=== PATIENT | female | born 1955 ===

== ENCOUNTER 2020-06-04 19:52 | Inpatient (IN) | payer MEDICARE ==
[2020-06-04 21:09] VITALS: BP 138/90
[2020-06-04] MEDS ORDERED: Magnesium Hydroxide (MOM) 30 mL UDC PO PRN (22:11)
--- NOTE | 2020-06-05 08:16 | Psychiatric Evaluation ---
DATE OF SERVICE: AGE: 64. SEX: Female. PHYSICIAN: Dr. Griffin. CHIEF COMPLAINT: "I'm a doctor." HISTORY OF PRESENT ILLNESS: The patient is a 64-year-old female who was admitted to the hospital on a 5150 hold for grave disability. The patient is highly disorganized and she is unable to coherently explain her history or story. Also, her behavior and speech are disorganized and unable to provide any safe plan for self-care. The patient also has been aggressive towards other members of the household including children. Chart reviewed and the patient interviewed and discussed the patient's condition with the staff and reviewed records and labs. The patient has grandiose delusions and seems to be confused. The patient started by telling me "I'm a doctor and I don't like to be told what to do." She also was easily irritable and agitated, and she was not able to answer my questions coherently. The patient also is restless and was getting irritable easily when I was asking her more questions. PAST PSYCHIATRIC HISTORY: The patient seems to have history of bipolar disorder versus schizoaffective disorder. PAST MEDICAL HISTORY: The patient is obese. She also has diabetes mellitus. The patient also has a history of congestive heart failure. SOCIAL HISTORY: It seemed that the patient lives with her family. No known alcohol or any street drug use. ALLERGIES: LIDOCAINE, BENZOCAINE, FLUOXETINE, AND NSAIDS. MENTAL STATUS EXAMINATION: The patient appears older than his stated age. Obese. Anxious. Flat affect. Irritable mood and easily agitated. Thought processes are disorganized with flight of ideas and unable to keep track on one topic. The patient denies any hallucinations or delusions, but actively responding to stimuli and actively hallucinating. The patient denies suicide or homicide ideations in spite of that the patient is aggressive and in irritable and angry mood. The patient is alert and oriented to the situation, but not to the place or person. Intact immediate memory and she remembered events happened prior to her admission. Intact recent memory and she remembered the events happened 2 weeks ago. Intact remote memory and she remembered her date. Poor insight and she does not know why she is in the hospital. Poor judgment and she was aggressive at home including children. Seems to be of average intelligence based on her verbal ability. ASSESSMENT: PRIMARY DIAGNOSIS: Bipolar disorder, manic episode, severe, with psychotic features. MEDICAL DIAGNOSES: 1. Obesity. 2. Congestive heart failure. 3. Hypertension. TREATMENT PLAN: We will continue monitoring her behavior and her condition closely. Also, we will start the patient on Seroquel, dose of 25 mg during the day and 200 mg at bedtime and we will adjust the dose. ESTIMATED LENGTH OF STAY: 5-7 days. PATIENT'S STRENGTHS AND WEAKNESSES: The patient's strength is not clear at this time except that she seemed that she has supportive family. Weaknesses are her poor judgment and her poor impulse control. AFTER DISCHARGE PLAN: Outpatient treatment and followup will continue as an outpatient. CRITERIA FOR DISCHARGE: The patient will not be psychotic or exhibiting manic behavior and will stabilize psychotropic medications and will establish outpatient treatment plans. JOB# [id number]
[2020-06-05] MEDS ORDERED: Nicotine 14 mg/24 hr Tdm TD ONE (08:40)
[2020-06-05] MEDS: Nicotine 14 mg/24 hr Tdm TD SCH (09:41)
[2020-06-05] MEDS: Atorvastatin Calcium 10 MG TAB PO SCH (20:58)
[2020-06-06] MEDS: Nicotine 14 mg/24 hr Tdm TD SCH (09:32)
--- NOTE | 2020-06-06 18:19 | Progress Notes ---
DATE: 06/06/2020 SUBJECTIVE: Chart reviewed and the patient interviewed. Also discussed the patient's condition with the staff and reviewed records and labs. The patient continued to be anxious and continued to be in irritable and angry mood. 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 She also still has severe mood swings. The patient also is restless and she is still easily agitated and easily irritable. Otherwise, the patient started on Seroquel new dose and she is taking Seroquel 25 mg twice a day and 200 mg at bedtime. ASSESSMENT: The patient is still psychotic and agitated. TREATMENT PLAN: Continue to monitor behavior and condition closely. Also, continue Seroquel same dose and work on her behavior and followup. JOB# [id number]
[2020-06-06] MEDS: Atorvastatin Calcium 10 MG TAB PO SCH (21:55)
[2020-06-07] MEDS: Nicotine 14 mg/24 hr Tdm TD SCH (08:38)
--- NOTE | 2020-06-07 13:49 | History and Physical ---
History of Present Illness - HPI Chief Complaint: Psychosis HPI: * Transferred from [facility] * Admitted for 5150hold due to manic episode Vital Signs: Last Vital Signs Temp 97.4 F 06/07/20 05:52 Pulse 81 06/07/20 05:52 Resp 20 06/07/20 05:52 BP 125/76 06/07/20 05:52 Pulse Ox 95 06/07/20 05:52 Past Medical History Cardiovascular: Report: Hyperlipidemia Pulmonary: Report: No Pertinent Hx WO[employer]WORKING [employer]ACH[employer]TER: Report: No Pertinent Hx GI: Report: No Pertinent Hx Psych: Report: Bipolar, Schizophrenia Musculoskeletal: Report: Osteoarthritis Rheumatologic: Report: No pertinent Hx Infectious Disease: Report: No Pertinent Hx Renal/: Report: No Pertinent Hx Endocrine: Report: Diabetes Dermatology: Report: No Pertinent Hx Family Medical History - Family Member Mother History Unknown: Yes Social History Smoke: Quit Alcohol: Other (Unknown) Drugs: Cocaine Lives: With Family, Homeless - Medications Home Medications: Home Medication Medication Instructions Recorded Type Atorvastatin Calcium [Lipitor] 40 mg PO HS 06/04/20 History Nicotine 14 mg/24 hr [Nicotine 14 mg TD DAILY 06/04/20 History Transdermal System] QUEtiapine Fumarate [SEROquel] 200 mg PO HS 06/04/20 History metFORMIN [Glucophage] 500 mg PO BID 06/04/20 History risperiDONE [Risperdal] 1 mg PO BID 06/04/20 History - Allergies Allergies/Adverse Reactions: Allergies Allergy/AdvReac Type Severity Reaction Status Date / Time Anesthetics - Amide Type Allergy Unknown Verified 06/04/20 22:02 benzocaine Allergy Verified 06/05/20 00:51 fluoxetine Allergy Verified 06/04/20 22:02 lidocaine Allergy Verified 06/04/20 22:02 NSAIDS (Non-Steroidal Allergy Verified 06/04/20 22:02 Anti-Inflamma Review of Systems - Review of Systems Constitutional: Report: No Significant Eyes: Report: No Significant ENT: Report: No Significant Respiratory: Report: No Significant Cardiovascular: Report: Edema Gastrointestinal: Report: No Significant Genitourinary: Report: Incontinence Musculoskeletal: Report: Leg Pain Skin: Report: No Significant Neurological: Report: No Significant Physical Exam - Physical Exam HEENT: Report: Ears Nose Throat within normal limits, Pharnyx within normal limits Neck: Report: Within normal limits Cardiovascular Systems: Report: Regular, Rate and Rhythm, no murmurs noted Respiratory: Report: Clear to Auscultation of lung charles, Breath Sounds are within normal limits Abdomen: Report: Non-tender to palpation, Bowel Sounds are within normal limits Back: Report: Inspection of back is within normal limits. Extremities: Report: Pedal edema was noted on inspection Skin: Report: Color of skin is within normal limits, Warm, Dry, No Rashes noted of the skin Neuro/Psych: Report: A+Ox3, CN II-XII intact, No motor deficit, No sensory deficit - Lab Results All Lab Results last 24 hours: Microbiology 06/04/20 22:19 - Final Nares NO MRSA ISOLATED - Assessment Assessment: * DM * Hyperlipidemia * BLE Edema * OA * Constipation * Pyschosis NOS * Cocaine use disorder * H/O Tobacco Abuse * Homeless * Obesity * Possible alcohol use disorder * Personality disorder - Plan Plan: * Admitted to Geropsych unit * Continue home meds * Psychiatry consult * Obtain labs on Tuesday * Start on diuretics for BLE Edema Cranial Nerve Assessment - CRANIAL NERVES alcohol swab:: Yes Distinguishes movements in peripheral field.:: Yes up, down, sideways:: Yes on forehead, cheeks and chin, chews symmetrically:: Yes FACIAL VII: upper: Frowns Symmetrically:: Yes FACIAL VII: Lower: Smiles Symmetrically:: Yes both ears:: Yes GLOSS-PHARYNGEAL IX: Has gag reflex:: Yes VAGUS X: Can make guttural sounds:: Yes ACCESSORY XI: Shrugs shoulders symmetrically:: Yes tremors or fasciculation's:: Yes - MOTOR spasticity, cogwheel, atrophy, tremor, asterixis, other: Yes - COORDINATION Finger to nose, heel to boss, VALE, gait, Romberg: Yes - SENSORY signs, Brudzinski, Kernig, neck rigidity:: Yes - REFLEXES Brachioradials Right:: Yes Brachioradials Left:: Yes Biceps Right:: Yes Biceps Left:: Yes Triceps Right:: Yes Triceps Left:: Yes Knee Right:: Yes Knee Left:: Yes Ankle Right:: Yes Ankle Left:: Yes Babinski Right:: No Babinski Left:: No
--- NOTE | 2020-06-07 17:59 | Progress Notes ---
DATE: 06/07/2020 Case was discussed with staff of the patient, reviewed records. Covering for Dr. Griffin. This is a 64-year-old female who was admitted on 06/04/2020. 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 The patient was on a hold, grave disability, was highly disorganized, unable to talk coherently to explain her story, very disorganized, unable to give much information. The patient was grandiose. She was confused. 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 Does not like to be told what to do, was very agitated, and irritable. The patient probably with a history of bipolar disorder. When I talked to her, she started to tell me about how important it is for her to be leaving before Tuesday, trying to give all excuses, continues to have poor insight, unpredictable, impulsive, unable to state a safe plan for her self-care or tell me why she was here. Has been on Seroquel 25 mg twice a day, 200 mg at bedtime. She is also diabetic. She also is on Risperdal 1 mg twice a day. No side effects with the medication, no sedation, no nausea, no extrapyramidal symptoms. She kept following me around the unit, trying to give me ice. She is still psychotic and delusional. We will continue outpatient group therapy, milieu therapy, and adjust medications as needed. JOB# [id number] MTDD
[2020-06-07] MEDS: Atorvastatin Calcium 10 MG TAB PO SCH (20:17)
[2020-06-07] MEDS: Acetaminophen 500 MG TAB PO PRN (20:36)
[2020-06-08] MEDS: Nicotine 14 mg/24 hr Tdm TD SCH (08:12)
[2020-06-08 10:50] LABS: % NEUTROPHILS 60.4 % (40-70); BASOPHILS % (AUTO) 1.1 % (0.0-2.0); EOSINOPHILS % (AUTO) 1.8 % (0-4); HEMATOCRIT 41.5 % (36-48); LYMPHOCYTES # (AUTO) 1.6 K/uL (1.0-5.5); MEAN CORPUSCULAR HEMOGLOBIN 25 pg (27-31); MEAN CORPUSCULAR HGB CONC 31 % (32-36); MEAN CORPUSCULAR VOLUME 81 fL (79.0-98.0); MONOCYTES % (AUTO) 6.7 % (1.7-9.3); NEUTROPHILS # (AUTO) 3.2 K/uL (1.8-7.7); PLATELET COUNT 277 K/uL (130-430); RED BLOOD COUNT 5.16 MIL/uL (4.2-6.2); WHITE BLOOD COUNT 5.3 K/uL (4.8-10.8)
[2020-06-08 10:51] LABS: BASOPHILS # (AUTO) 0.1 K/uL (0.0-0.2); EOSINOPHILS # (AUTO) 0.1 K/uL (0.0-0.4); MONOCYTES # (AUTO) 0.4 K/uL (0.0-1.0)
[2020-06-08 11:08] LABS: CHOLESTEROL 125 mg/dL (<200); LDL CHOLESTEROL 68 mg/dL (0-129); TRIGLYCERIDES 114 mg/dL (30-150)
[2020-06-08 11:10] LABS: BILIRUBIN,TOTAL 0.5 mg/dL (0.0-1.0); CALCIUM SERUM 9.6 mg/dL (8.4-10.2); CREATININE - SERUM 0.78 mg/dL (0.70-1.30); TOTAL PROTEIN,SERUM 8.1 g/dL (6.4-8.3)
[2020-06-08 11:11] LABS: POTASSIUM SERUM 4.1 mmol/L (3.5-5.1)
[2020-06-08] MEDS: Acetaminophen 500 MG TAB PO PRN (13:58)
--- NOTE | 2020-06-08 20:09 | Progress Notes ---
DATE: 06/08/2020 Case was discussed with staff of the patient, reviewed records. The patient continues to be grandiose, continues to be intrusive. I was talking to the patient, she came and asked me if I could take the patient back to her room and I discussed with her that she need to just mind her own business. She continues to be grandiose, delusional, unable to make safe plan for self-care. 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 No side effects with the medication, no sedation, no nausea, no extrapyramidal symptoms. I will be increasing her Seroquel dose during the day to 50 mg twice a day. We will continue outpatient group therapy, milieu therapy, adjust medication as needed. JOB# [id number]
[2020-06-08] MEDS: Atorvastatin Calcium 10 MG TAB PO SCH (20:56)
[2020-06-09] MEDS: Nicotine 14 mg/24 hr Tdm TD SCH (08:14)
--- NOTE | 2020-06-09 12:39 | Internal Medicine Prog Note ---
Internal Medicine Subjective - Subjective Service Date: 06/09/20 Patient seen and examined:: without staff Patient is:: awake Patient Complaints of:: congestion Per staff patient has:: no adverse event, no episodes of fall Internal Medicine Objective - Results Result Diagrams: 06/08/20 09:45 06/08/20 09:45 Recent Labs: Laboratory Last Values WBC 5.3 K/uL (4.8-10.8) 06/08/20 09:45 RBC 5.16 MIL/uL (4.2-6.2) 06/08/20 09:45 Hgb 13.0 g/dL (12.0-16.0) 06/08/20 09:45 Hct 41.5 % (36-48) 06/08/20 09:45 MCV 81 fL (79.0-98.0) 06/08/20 09:45 MCH 25 pg (27-31) L 06/08/20 09:45 MCHC 31 % (32-36) L 06/08/20 09:45 RDW 15.0 % (9.0-15.0) 06/08/20 09:45 Plt Count 277 K/uL (130-430) 06/08/20 09:45 MPV 8.6 fl (7.4-10.4) 06/08/20 09:45 Neut % (Auto) 60.4 % (40-70) 06/08/20 09:45 Lymph % (Auto) 30.0 % (20.5-51.5) 06/08/20 09:45 Howard % (Auto) 6.7 % (1.7-9.3) 06/08/20 09:45 Eos % (Auto) 1.8 % (0-4) 06/08/20 09:45 Baso % (Auto) 1.1 % (0.0-2.0) 06/08/20 09:45 Neut # (Auto) 3.2 K/uL (1.8-7.7) 06/08/20 09:45 Lymph # (Auto) 1.6 K/uL (1.0-5.5) 06/08/20 09:45 Howard # (Auto) 0.4 K/uL (0.0-1.0) 06/08/20 09:45 Eos # (Auto) 0.1 K/uL (0.0-0.4) 06/08/20 09:45 Baso # (Auto) 0.1 K/uL (0.0-0.2) 06/08/20 09:45 Sodium 137 mmol/L (136-145) 06/08/20 09:45 Potassium 4.1 mmol/L (3.5-5.1) 06/08/20 09:45 Chloride 105 mmol/L (98-107) 06/08/20 09:45 Carbon Dioxide 26 mmol/L (23-29) 06/08/20 09:45 Anion Gap 10 (5-15) 06/08/20 09:45 BUN 17 mg/dL (8-21) 06/08/20 09:45 Creatinine 0.78 mg/dL (0.70-1.30) 06/08/20 09:45 Glucose 100 mg/dL (70-99) H 06/08/20 09:45 POC Glucose 121 MG/DL (70 - 105) H 06/05/20 14:15 Calcium 9.6 mg/dL (8.4-10.2) 06/08/20 09:45 Total Bilirubin 0.5 mg/dL (0.0-1.0) 06/08/20 09:45 AST 59 U/L (10-37) H 06/08/20 09:45 ALT 47 U/L (12-78) 06/08/20 09:45 Alkaline Phosphatase 92 U/L (46-116) 06/08/20 09:45 Total Protein 8.1 g/dL (6.4-8.3) 06/08/20 09:45 Albumin 3.3 g/dL (3.4-5.0) L 06/08/20 09:45 Triglycerides 114 mg/dL (30-150) 06/08/20 09:45 Cholesterol 125 mg/dL (<200) 06/08/20 09:45 LDL Cholesterol 68 mg/dL (0-129) 06/08/20 09:45 HDL Cholesterol 45 mg/dL (>55) L 06/08/20 09:45 - Physical Exam Vitals and I&O: Vital Signs Temp 98.8 F 06/09/20 06:29 Pulse 75 06/09/20 06:29 Resp 20 06/09/20 06:29 BP 113/74 06/09/20 08:14 Pulse Ox 92 06/09/20 06:29 Intake & Output 06/08/20 06/09/20 06/09/20 18:59 06:59 18:59 Intake Total 240 Balance 240 Intake: Oral 240 Other: # Voids 3 # Bowel Movements 0 Active Medications: Current Medications Acetaminophen (Tylenol) 650 mg PO Q4H PRN PRN Reason: Pain (Mild 1-3) Stop: 08/03/20 22:10 Acetaminophen (Tylenol Extra Strength) 1,000 mg PO Q6H PRN PRN Reason: Pain (Moderate 4-6) Stop: 08/03/20 22:10 Last Admin: 06/08/20 13:58 Dose: 1,000 mg Al Hydrox/Mg Hydrox/Simethicone (Maalox) 30 ml PO Q4HR PRN PRN Reason: GI DISTRESS Stop: 08/03/20 22:10 Atorvastatin Calcium (Lipitor) 40 mg PO HS [facility] Stop: 08/04/20 20:59 Last Admin: 06/08/20 20:56 Dose: 40 mg Furosemide (Lasix) 20 mg PO DAILY [facility] Stop: 08/06/20 14:14 Last Admin: 06/09/20 08:14 Dose: 20 mg Lorazepam (Ativan) 1 mg PO Q4HR PRN; Protocol PRN Reason: Anxiety Stop: 08/04/20 07:20 Last Admin: 06/09/20 01:19 Dose: 1 mg Magnesium Hydroxide (Milk Of Magnesia) 30 ml PO HS PRN PRN Reason: Constipation Metformin HCl (Glucophage) 500 mg PO BIDWM ANNA Stop: 08/05/20 09:59 Last Admin: 06/09/20 08:13 Dose: 500 mg Nicotine (Nicotine Transdermal System) 14 mg TD DAILY ANNA Stop: 08/04/20 08:59 Last Admin: 06/09/20 08:14 Dose: 14 mg Quetiapine Fumarate (Seroquel) 200 mg PO HS ANNA; Protocol Stop: 08/04/20 20:59 Last Admin: 06/08/20 20:56 Dose: 200 mg Quetiapine Fumarate (Seroquel) 50 mg PO BID [facility]; Protocol Stop: 08/07/20 16:59 Last Admin: 06/09/20 08:14 Dose: 50 mg Risperidone (Risperdal) 1 mg PO BID [facility]; Protocol Stop: 08/05/20 08:59 Last Admin: 06/09/20 08:14 Dose: 1 mg Zolpidem Tartrate (Ambien) 5 mg PO HS PRN PRN Reason: Insomnia Stop: 08/03/20 22:10 Last Admin: 06/08/20 20:56 Dose: 5 mg General: weak HEENT: NC/AT, PERRLA Neck: Supple Lungs: CTAB Cardiovascular: RRR, Normal S1, Normal S2 Abdomen: soft Extremities: clear Internal Medicine Assmt/Plan - Assessment Assessment: 1. DM 2. HTN 3. Obesity - Plan Plan: continue glucophage continue htn meds d/w r.n. reviewed complete medical records Nutritional Asmnt/Malnutr-PDOC - Dietary Evaluation Malnutrition Findings (Please click <Entered> for more info): Nutritional Asmnt/Malnutrition Start: 06/08/20 11: 05 Text: Status: Complete Freq: Protocol: Document 06/08/20 11:05 EDWARD (Rec: 06/08/20 11:08 EDWARD [id number]) Nutritional Asmnt/Malnutrition Patient General Information Nutritional Screening Moderate Risk Diagnosis Grave Disability hold Pertinent Medical Hx/Surgical Hx Hyperlipidemia, Bipolar disorder, Schizophrenia, Osteoarthritis, DM, CHF Subjective Information Pt is a 64-year-old male admitted on 06/04 d/t hold for grave disability. Pt is eating an estimated 100% of meals since admit date (x3 days) Per Meal/Nutrition Activity Record. Dietary is currently providing an estimated 1700 kcals and 95 gm Pro to meet 100% kcal and 100+% Pro needs. Anthropometrics HT: 56 WT: 230 LB (104.55 kg) ABW: 155 LB (70.45 kg) BMI: 37.12 (Obese, class II) GI/ Skin Integrity GI: WNL, Soft, Large BM: 06/07 x1 I/O: 1440/Not Noted Skin: WNL, Intact, BLE Edema Patrick: 19 Diet Order: CCHO, CRYSTAL Estimated Energy Needs: (Obese , ABW) 0466-9993 kcals (20-25 kcals/ kg) 55-70g Pro (0.8-1.0 g/kg) 8783-0836 ml (20-25 ml/kg) Current Diet Order/ Nutrition Support CCHO, CRYSTAL Pertinent Medications Maalox (PRN), Lipitor, Lasix, MOM (PRN), Metformin Pertinent Labs POC Glucose (06/04-06/05): 128, 121 Nutritional Hx/Data Height 1.68 m Height (Calculated Centimeters) 167.6 Current Weight (lbs) 104.326 kg Weight (Calculated Kilograms) 104.3 Weight (Calculated Grams) 926486.2 [place] Body Weight 130 LB (59.09 kg) % [place] Body Weight 177 Body Mass Index (BMI) 37.1 Weight Status Obese GI Symptoms Last BM 06/07 x1 Skin Integrity/Comment: Skin: WNL, Intact, BLE Edema Patrick: 19 Lasix in medication regimen Current %PO Good (75-100%) Estimated Nutritional Goals BEE in Kcals: Adj wt of IBW Calories/Kcals/Kg 20-25 Kcals Calculated 5076-2203 Protein: Adj wt of IBW Protein g/k.8-1.0 Protein Calculated 55-70 Fluid: ml 1410-5590 ml (20-25 ml/kg) Nutritional Problem 2. Problem Problem Impaired nutrient utilization Etiology r/t endocrine dysfunction Signs/Symptoms: aeb Hx DM, POC Glucose (06/04-): 128, 121. 1. Problem Problem Obese Etiology r/t chronic energy overconsumption Signs/Symptoms: aeb BMI >30 (37.12, obese class II). Malnutrition Related to Morbid Obesity Malnutrition related to morbid obesity No Intervention/Recommendation Comments 1.Continue CCHO, CRYSTAL diet as tolerated. 2.Continue antihyperglycemic medication for glucose control per MD order. Expected Outcomes/Goals Expected Outcomes/Goals 1.PO intake to continue to meet >75% of estimated nutritional needs. 2.Monitor PO intake, wt, nutrition related labs, and skin integrity. 3.Gradual weight loss (0.5-1.0 ) LB/ week trending toward IBW preferred. 4.F/U as low risk in 7-10 days , 06/15-06/18.
[2020-06-09] MEDS: Acetaminophen 500 MG TAB PO PRN (16:41)
[2020-06-09] MEDS: Atorvastatin Calcium 10 MG TAB PO SCH (20:46)
--- NOTE | 2020-06-09 20:54 | Progress Notes ---
DATE: 06/09/2020 SUBJECTIVE: Chart was reviewed and the patient interviewed. Also discussed the patient's condition with the staff and reviewed records and labs. 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 The patient also is still unable to carry on any coherent conversation and "I'm here for hanging out." While my interview of the patient, the patient was singing loud and she is still exhibiting manic behavior and irritable mood and difficulty following directions and tried to calm her down, but the patient kept singing and kept rambling. MENTAL STATUS EXAMINATION: Disheveled. Irritable mood. Flat affect. Disorganized thoughts and manic behavior. ASSESSMENT: The patient is still manicky. TREATMENT PLAN: Continue monitoring behavior and condition closely. Also, continue working on her irritability and also working on her behavior. JOB# [id number]
[2020-06-10] MEDS: Nicotine 14 mg/24 hr Tdm TD SCH (08:49)
--- NOTE | 2020-06-10 14:09 | Internal Medicine Prog Note ---
Internal Medicine Subjective - Subjective Service Date: 06/10/20 Patient seen and examined:: without staff Patient is:: awake Patient Complaints of:: congestion Per staff patient has:: no adverse event, no episodes of fall Internal Medicine Objective - Results Result Diagrams: 06/08/20 09:45 06/08/20 09:45 Recent Labs: Laboratory Last Values WBC 5.3 K/uL (4.8-10.8) 06/08/20 09:45 RBC 5.16 MIL/uL (4.2-6.2) 06/08/20 09:45 Hgb 13.0 g/dL (12.0-16.0) 06/08/20 09:45 Hct 41.5 % (36-48) 06/08/20 09:45 MCV 81 fL (79.0-98.0) 06/08/20 09:45 MCH 25 pg (27-31) L 06/08/20 09:45 MCHC 31 % (32-36) L 06/08/20 09:45 RDW 15.0 % (9.0-15.0) 06/08/20 09:45 Plt Count 277 K/uL (130-430) 06/08/20 09:45 MPV 8.6 fl (7.4-10.4) 06/08/20 09:45 Neut % (Auto) 60.4 % (40-70) 06/08/20 09:45 Lymph % (Auto) 30.0 % (20.5-51.5) 06/08/20 09:45 [place] % (Auto) 6.7 % (1.7-9.3) 06/08/20 09:45 Eos % (Auto) 1.8 % (0-4) 06/08/20 09:45 Baso % (Auto) 1.1 % (0.0-2.0) 06/08/20 09:45 Neut # (Auto) 3.2 K/uL (1.8-7.7) 06/08/20 09:45 Lymph # (Auto) 1.6 K/uL (1.0-5.5) 06/08/20 09:45 [place] # (Auto) 0.4 K/uL (0.0-1.0) 06/08/20 09:45 Eos # (Auto) 0.1 K/uL (0.0-0.4) 06/08/20 09:45 Baso # (Auto) 0.1 K/uL (0.0-0.2) 06/08/20 09:45 Sodium 137 mmol/L (136-145) 06/08/20 09:45 Potassium 4.1 mmol/L (3.5-5.1) 06/08/20 09:45 Chloride 105 mmol/L (98-107) 06/08/20 09:45 Carbon Dioxide 26 mmol/L (23-29) 06/08/20 09:45 Anion Gap 10 (5-15) 06/08/20 09:45 BUN 17 mg/dL (8-21) 06/08/20 09:45 Creatinine 0.78 mg/dL (0.70-1.30) 06/08/20 09:45 Glucose 100 mg/dL (70-99) H 06/08/20 09:45 POC Glucose 121 MG/DL (70 - 105) H 06/05/20 14:15 Hemoglobin A1c 7.0 % (4.8-5.6) H 06/08/20 09:45 Calcium 9.6 mg/dL (8.4-10.2) 06/08/20 09:45 Total Bilirubin 0.5 mg/dL (0.0-1.0) 06/08/20 09:45 AST 59 U/L (10-37) H 06/08/20 09:45 ALT 47 U/L (12-78) 06/08/20 09:45 Alkaline Phosphatase 92 U/L (46-116) 06/08/20 09:45 Total Protein 8.1 g/dL (6.4-8.3) 06/08/20 09:45 Albumin 3.3 g/dL (3.4-5.0) L 06/08/20 09:45 Triglycerides 114 mg/dL (30-150) 06/08/20 09:45 Cholesterol 125 mg/dL (<200) 06/08/20 09:45 LDL Cholesterol 68 mg/dL (0-129) 06/08/20 09:45 HDL Cholesterol 45 mg/dL (>55) L 06/08/20 09:45 - Physical Exam Vitals and I&O: Vital Signs Temp 97.6 F 06/10/20 05:10 Pulse 70 06/10/20 05:10 Resp 16 06/10/20 08:00 BP 127/72 06/10/20 08:49 Pulse Ox 94 06/10/20 05:10 Intake & Output 06/09/20 06/10/20 06/10/20 18:59 06:59 18:59 Intake Total 900 480 Balance 900 480 Intake: Oral 900 480 Other: # Voids 3 1 # Bowel Movements 1 0 Active Medications: Current Medications Acetaminophen (Tylenol) 650 mg PO Q4H PRN PRN Reason: Pain (Mild 1-3) Stop: 08/03/20 22:10 Acetaminophen (Tylenol Extra Strength) 1,000 mg PO Q6H PRN PRN Reason: Pain (Moderate 4-6) Stop: 08/03/20 22:10 Last Admin: 06/09/20 16:41 Dose: 1,000 mg Al Hydrox/Mg Hydrox/Simethicone (Maalox) 30 ml PO Q4HR PRN PRN Reason: GI DISTRESS Stop: 08/03/20 22:10 Atorvastatin Calcium (Lipitor) 40 mg PO HS ANNA Stop: 08/04/20 20:59 Last Admin: 06/09/20 20:46 Dose: 40 mg Furosemide (Lasix) 20 mg PO DAILY ANNA Stop: 08/06/20 14:14 Last Admin: 06/10/20 08:49 Dose: 20 mg Lorazepam (Ativan) 1 mg PO Q4HR PRN; Protocol PRN Reason: Anxiety Stop: 08/04/20 07:20 Last Admin: 06/10/20 08:50 Dose: 1 mg Magnesium Hydroxide (Milk Of Magnesia) 30 ml PO HS PRN PRN Reason: Constipation Metformin HCl (Glucophage) 500 mg PO BIDWM ANNA Stop: 08/05/20 09:59 Last Admin: 06/10/20 08:49 Dose: 500 mg Nicotine (Nicotine Transdermal System) 14 mg TD DAILY ANNA Stop: 08/04/20 08:59 Last Admin: 06/10/20 08:49 Dose: 14 mg Quetiapine Fumarate (Seroquel) 200 mg PO HS ANNA; Protocol Stop: 08/04/20 20:59 Last Admin: 06/09/20 20:46 Dose: 200 mg Quetiapine Fumarate (Seroquel) 50 mg PO BID ANNA Stop: 08/08/20 16:59 Last Admin: 06/10/20 08:50 Dose: 50 mg Risperidone (Risperdal) 1 mg PO BID ANNA; Protocol Stop: 08/05/20 08:59 Last Admin: 06/10/20 08:49 Dose: 1 mg Zolpidem Tartrate (Ambien) 5 mg PO HS PRN PRN Reason: Insomnia Stop: 08/03/20 22:10 Last Admin: 06/09/20 20:46 Dose: 5 mg General: weak HEENT: NC/AT, PERRLA Neck: Supple Lungs: CTAB Cardiovascular: RRR, Normal S1, Normal S2 Abdomen: soft Extremities: clear Neurological: no change Internal Medicine Assmt/Plan - Assessment Assessment: 1. DM 2. HTN 3. Obesity - Plan Plan: continue glucophage continue htn meds d/w r.n. reviewed complete medical records Nutritional Asmnt/Malnutr-PDOC - Dietary Evaluation Malnutrition Findings (Please click <Entered> for more info): Nutritional Asmnt/Malnutrition Start: 06/08/20 11: 05 Text: Status: Complete Freq: Protocol: Document 06/08/20 11:05 EDWARD (Rec: 06/08/20 11:08 EDWARD [email or web address] [id number]) Nutritional Asmnt/Malnutrition Patient General Information Nutritional Screening Moderate Risk Diagnosis Grave Disability hold Pertinent Medical Hx/Surgical Hx Hyperlipidemia, Bipolar disorder, Schizophrenia, Osteoarthritis, DM, CHF Subjective Information Pt is a 64-year-old male admitted on 06/04 d/t hold for grave disability. Pt is eating an estimated 100% of meals since admit date (x3 days) Per Meal/Nutrition Activity Record. Dietary is currently providing an estimated 1700 kcals and 95 gm Pro to meet 100% kcal and 100+% Pro needs. Anthropometrics HT: 56 WT: 230 LB (104.55 kg) ABW: 155 LB (70.45 kg) BMI: 37.12 (Obese, class II) GI/ Skin Integrity GI: WNL, Soft, Large BM: 06/07 x1 I/O: 1440/Not Noted Skin: WNL, Intact, BLE Edema Patrick: 19 Diet Order: CCHO, CRYSTAL Estimated Energy Needs: (Obese , ABW) 0715-4954 kcals (20-25 kcals/ kg) 55-70g Pro (0.8-1.0 g/kg) 7475-5728 ml (20-25 ml/kg) Current Diet Order/ Nutrition Support CCHO, CRYSTAL Pertinent Medications Maalox (PRN), Lipitor, Lasix, MOM (PRN), Metformin Pertinent Labs POC Glucose (06/04-06/05): 128, 121 Nutritional Hx/Data Height 1.68 m Height (Calculated Centimeters) 167.6 Current Weight (lbs) 104.326 kg Weight (Calculated Kilograms) 104.3 Weight (Calculated Grams) 080956.2 [place] Body Weight 130 LB (59.09 kg) % [place] Body Weight 177 Body Mass Index (BMI) 37.1 Weight Status Obese GI Symptoms Last BM 06/07 x1 Skin Integrity/Comment: Skin: WNL, Intact, BLE Edema Patrikc: 19 Lasix in medication regimen Current %PO Good (75-100%) Estimated Nutritional Goals BEE in Kcals: Adj wt of IBW Calories/Kcals/Kg 20-25 Kcals Calculated 7368-8823 Protein: Adj wt of IBW Protein g/k.8-1.0 Protein Calculated 55-70 Fluid: ml 0801-8442 ml (20-25 ml/kg) Nutritional Problem 2. Problem Problem Impaired nutrient utilization Etiology r/t endocrine dysfunction Signs/Symptoms: aeb Hx DM, POC Glucose (06/04-): 128, 121. 1. Problem Problem Obese Etiology r/t chronic energy overconsumption Signs/Symptoms: aeb BMI >30 (37.12, obese class II). Malnutrition Related to Morbid Obesity Malnutrition related to morbid obesity No Intervention/Recommendation Comments [facility] diet as tolerated. 2.Continue antihyperglycemic medication for glucose control per MD order. Expected Outcomes/Goals Expected Outcomes/Goals 1.PO intake to continue to meet >75% of estimated nutritional needs. 2.Monitor PO intake, wt, nutrition related labs, and skin integrity. 3.Gradual weight loss (0.5-1.0 ) LB/ week trending toward IBW preferred. 4.F/U as low risk in 7-10 days , 06/15-06/18.
--- NOTE | 2020-06-10 19:19 | Progress Notes ---
DATE: PSYCHIATRIC PROGRESS NOTE SUBJECTIVE: Chart reviewed and the patient interviewed. Also discussed the patient's condition with the staff and reviewed records and labs. "I am a retired [employer] of [employer]." "I wanted to be a lifetime colonel." The patient continued to have grandiose delusion and she is still having severe mood swings. The patient also is easily irritable and easily agitated. The patient also is demanding and she is pacing up and down the unit. The patient also is restless and she still needs redirections and close monitoring for her behavior. ASSESSMENT: The patient still has grandiose delusions and she is still in irritable mood. TREATMENT PLAN: Continue to work on behavioral modification and on her irritability. Also, continue adjusting psychotropic medications and work on behavioral modification. JOB# [id number]
[2020-06-10] MEDS: Atorvastatin Calcium 10 MG TAB PO SCH (20:56)
[2020-06-11] MEDS: Nicotine 14 mg/24 hr Tdm TD SCH (08:03)
[2020-06-11] MEDS ORDERED: Nicotine 14 mg/24 hr Tdm TD ONE (12:25)
--- NOTE | 2020-06-11 13:40 | Progress Notes ---
DATE: 06/11/2020 Case was discussed with staff of the patient, reviewed records. This is a well-known case to me. I have seen her before Covering for Dr. Griffin. reviewed lab work. The patient continues to be grandiose, delusional. She believes she need to be a lifetime colonel. She asked me today if she could get her import export manager to come in and get her out, so he can get her out of the unit. Continues to be easily irritable, agitated, very intrusive, demanding. Continues to come to the nurses' station. No side effects with the medication, no sedation, no nausea, no extrapyramidal symptoms. Very poor insight, unable to make safe plan for her self-care. I will be increasing her Seroquel during the day to 75 mg twice a day to help improve her intrusive, grandiose, delusional behavior and we will continue outpatient group therapy, milieu therapy, adjust medication as needed. JOB# [id number] MARLENE
--- NOTE | 2020-06-11 13:46 | Internal Medicine Prog Note ---
Internal Medicine Subjective - Subjective Service Date: 06/11/20 Patient seen and examined:: without staff Patient is:: awake Patient Complaints of:: congestion Per staff patient has:: no adverse event, no episodes of fall Internal Medicine Objective - Results Result Diagrams: 06/08/20 09:45 06/08/20 09:45 Recent Labs: Laboratory Last Values WBC 5.3 K/uL (4.8-10.8) 06/08/20 09:45 RBC 5.16 MIL/uL (4.2-6.2) 06/08/20 09:45 Hgb 13.0 g/dL (12.0-16.0) 06/08/20 09:45 Hct 41.5 % (36-48) 06/08/20 09:45 MCV 81 fL (79.0-98.0) 06/08/20 09:45 MCH 25 pg (27-31) L 06/08/20 09:45 MCHC 31 % (32-36) L 06/08/20 09:45 RDW 15.0 % (9.0-15.0) 06/08/20 09:45 Plt Count 277 K/uL (130-430) 06/08/20 09:45 MPV 8.6 fl (7.4-10.4) 06/08/20 09:45 Neut % (Auto) 60.4 % (40-70) 06/08/20 09:45 Lymph % (Auto) 30.0 % (20.5-51.5) 06/08/20 09:45 [place] % (Auto) 6.7 % (1.7-9.3) 06/08/20 09:45 Eos % (Auto) 1.8 % (0-4) 06/08/20 09:45 Baso % (Auto) 1.1 % (0.0-2.0) 06/08/20 09:45 Neut # (Auto) 3.2 K/uL (1.8-7.7) 06/08/20 09:45 Lymph # (Auto) 1.6 K/uL (1.0-5.5) 06/08/20 09:45 [place] # (Auto) 0.4 K/uL (0.0-1.0) 06/08/20 09:45 Eos # (Auto) 0.1 K/uL (0.0-0.4) 06/08/20 09:45 Baso # (Auto) 0.1 K/uL (0.0-0.2) 06/08/20 09:45 Sodium 137 mmol/L (136-145) 06/08/20 09:45 Potassium 4.1 mmol/L (3.5-5.1) 06/08/20 09:45 Chloride 105 mmol/L (98-107) 06/08/20 09:45 Carbon Dioxide 26 mmol/L (23-29) 06/08/20 09:45 Anion Gap 10 (5-15) 06/08/20 09:45 BUN 17 mg/dL (8-21) 06/08/20 09:45 Creatinine 0.78 mg/dL (0.70-1.30) 06/08/20 09:45 Glucose 100 mg/dL (70-99) H 06/08/20 09:45 POC Glucose 121 MG/DL (70 - 105) H 06/05/20 14:15 Hemoglobin A1c 7.0 % (4.8-5.6) H 06/08/20 09:45 Calcium 9.6 mg/dL (8.4-10.2) 06/08/20 09:45 Total Bilirubin 0.5 mg/dL (0.0-1.0) 06/08/20 09:45 AST 59 U/L (10-37) H 06/08/20 09:45 ALT 47 U/L (12-78) 06/08/20 09:45 Alkaline Phosphatase 92 U/L (46-116) 06/08/20 09:45 Total Protein 8.1 g/dL (6.4-8.3) 06/08/20 09:45 Albumin 3.3 g/dL (3.4-5.0) L 06/08/20 09:45 Triglycerides 114 mg/dL (30-150) 06/08/20 09:45 Cholesterol 125 mg/dL (<200) 06/08/20 09:45 LDL Cholesterol 68 mg/dL (0-129) 06/08/20 09:45 HDL Cholesterol 45 mg/dL (>55) L 06/08/20 09:45 - Physical Exam Vitals and I&O: Vital Signs Temp 98.8 F 06/11/20 05:31 Pulse 90 06/11/20 05:31 Resp 20 06/11/20 08:00 BP 110/57 06/11/20 08:04 Pulse Ox 93 06/11/20 05:31 Intake & Output 06/10/20 06/11/20 06/11/20 18:59 06:59 18:59 Intake Total 1500 120 Balance 1500 120 Intake: Oral 1500 120 Other: # Voids 4 2 # Bowel Movements 0 0 Active Medications: Current Medications Acetaminophen (Tylenol) 650 mg PO Q4H PRN PRN Reason: Pain (Mild 1-3) Stop: 08/03/20 22:10 Acetaminophen (Tylenol Extra Strength) 1,000 mg PO Q6H PRN PRN Reason: Pain (Moderate 4-6) Stop: 08/03/20 22:10 Last Admin: 06/09/20 16:41 Dose: 1,000 mg Al Hydrox/Mg Hydrox/Simethicone (Maalox) 30 ml PO Q4HR PRN PRN Reason: GI DISTRESS Stop: 08/03/20 22:10 Atorvastatin Calcium (Lipitor) 40 mg PO HS [facility] Stop: 08/04/20 20:59 Last Admin: 06/10/20 20:56 Dose: 40 mg Furosemide (Lasix) 20 mg PO DAILY [facility] Stop: 08/06/20 14:14 Last Admin: 06/11/20 08:04 Dose: 20 mg Lorazepam (Ativan) 1 mg PO Q4HR PRN; Protocol PRN Reason: Anxiety Stop: 08/04/20 07:20 Last Admin: 06/11/20 08:11 Dose: 1 mg Magnesium Hydroxide (Milk Of Magnesia) 30 ml PO HS PRN PRN Reason: Constipation Metformin HCl (Glucophage) 500 mg PO BIDWM ANNA Stop: 08/05/20 09:59 Last Admin: 06/11/20 08:05 Dose: 500 mg Nicotine (Nicotine Transdermal System) 14 mg TD DAILY [facility] Stop: 08/04/20 08:59 Last Admin: 06/11/20 08:03 Dose: 14 mg Quetiapine Fumarate (Seroquel) 200 mg PO HS [facility]; Protocol Stop: 08/04/20 20:59 Last Admin: 06/10/20 20:56 Dose: 200 mg Quetiapine Fumarate 50 mg/ (Quetiapine Fumarate 25 mg) 75 mg PO BID [facility] Stop: 08/10/20 16:59 Risperidone (Risperdal) 1 mg PO BID ANNA; Protocol Stop: 08/05/20 08:59 Last Admin: 06/11/20 08:04 Dose: 1 mg Zolpidem Tartrate (Ambien) 5 mg PO HS PRN PRN Reason: Insomnia Stop: 08/03/20 22:10 Last Admin: 06/10/20 21:16 Dose: 5 mg General: weak HEENT: NC/AT, PERRLA Neck: Supple Lungs: CTAB Cardiovascular: RRR, Normal S1, Normal S2 Abdomen: soft Extremities: clear Neurological: no change Internal Medicine Assmt/Plan - Assessment Assessment: 1. DM 2. HTN 3. Obesity - Plan Plan: continue glucophage continue htn meds d/w r.n. reviewed complete medical records Nutritional Asmnt/Malnutr-PDOC - Dietary Evaluation Malnutrition Findings (Please click <Entered> for more info): Nutritional Asmnt/Malnutrition Start: 06/08/20 11: 05 Text: Status: Complete Freq: Protocol: Document 06/08/20 11:05 EDWARD (Rec: 06/08/20 11:08 EDWARD MILY-CTXTS -[id number]) Nutritional Asmnt/Malnutrition Patient General Information Nutritional Screening Moderate Risk Diagnosis Grave Disability hold Pertinent Medical Hx/Surgical Hx Hyperlipidemia, Bipolar disorder, Schizophrenia, Osteoarthritis, DM, CHF Subjective Information Pt is a 64-year-old male admitted on 06/04 d/t hold for grave disability. Pt is eating an estimated 100% of meals since admit date (x3 days) Per Meal/Nutrition Activity Record. Dietary is currently providing an estimated 1700 kcals and 95 gm Pro to meet 100% kcal and 100+% Pro needs. Anthropometrics HT: 56 WT: 230 LB (104.55 kg) ABW: 155 LB (70.45 kg) BMI: 37.12 (Obese, class II) GI/ Skin Integrity GI: WNL, Soft, Large BM: 06/07 x1 I/O: 1440/Not Noted Skin: WNL, Intact, BLE Edema Patrick: 19 Diet Order: CCHO, CRYSTAL Estimated Energy Needs: (Obese , ABW) 6842-0853 kcals (20-25 kcals/ kg) 55-70g Pro (0.8-1.0 g/kg) 3544-2623 ml (20-25 ml/kg) Current Diet Order/ Nutrition Support CCHO, CRYSTAL Pertinent Medications Maalox (PRN), Lipitor, Lasix, MOM (PRN), Metformin Pertinent Labs POC Glucose (06/04-06/05): 128, 121 Nutritional Hx/Data Height 1.68 m Height (Calculated Centimeters) 167.6 Current Weight (lbs) 104.326 kg Weight (Calculated Kilograms) 104.3 Weight (Calculated Grams) 497471.2 [place] Body Weight 130 LB (59.09 kg) % [place] Body Weight 177 Body Mass Index (BMI) 37.1 Weight Status Obese GI Symptoms Last BM 06/07 x1 Skin Integrity/Comment: Skin: WNL, Intact, BLE Edema Patrick: 19 Lasix in medication regimen Current %PO Good (75-100%) Estimated Nutritional Goals BEE in Kcals: Adj wt of IBW Calories/Kcals/Kg 20-25 Kcals Calculated 2196-2572 Protein: Adj wt of IBW Protein g/k.8-1.0 Protein Calculated 55-70 Fluid: ml 5842-1642 ml (20-25 ml/kg) Nutritional Problem 2. Problem Problem Impaired nutrient utilization Etiology r/t endocrine dysfunction Signs/Symptoms: aeb Hx DM, POC Glucose (06/04-): 128, 121. 1. Problem Problem Obese Etiology r/t chronic energy overconsumption Signs/Symptoms: aeb BMI >30 (37.12, obese class II). Malnutrition Related to Morbid Obesity Malnutrition related to morbid obesity No Intervention/Recommendation Comments [facility] as tolerated. 2.Continue antihyperglycemic medication for glucose control per MD order. Expected Outcomes/Goals Expected Outcomes/Goals 1.PO intake to continue to meet >75% of estimated nutritional needs. 2.Monitor PO intake, wt, nutrition related labs, and skin integrity. 3.Gradual weight loss (0.5-1.0 ) LB/ week trending toward IBW preferred. 4.F/U as low risk in 7-10 days , 06/15-06/18.
[2020-06-11] MEDS: Acetaminophen 500 MG TAB PO PRN (14:58)
[2020-06-11] MEDS: Maalox 30 mL Cup PO PRN (20:25)
[2020-06-12] MEDS: Nicotine 14 mg/24 hr Tdm TD SCH (08:21)
[2020-06-12] MEDS: Maalox 30 mL Cup PO PRN (14:57)
--- NOTE | 2020-06-12 15:39 | Internal Medicine Prog Note ---
Internal Medicine Subjective - Subjective Service Date: 06/12/20 Patient seen and examined:: without staff Patient is:: awake Patient Complaints of:: congestion Per staff patient has:: no adverse event, no episodes of fall Internal Medicine Objective - Results Result Diagrams: 06/08/20 09:45 06/08/20 09:45 Recent Labs: Laboratory Last Values WBC 5.3 K/uL (4.8-10.8) 06/08/20 09:45 RBC 5.16 MIL/uL (4.2-6.2) 06/08/20 09:45 Hgb 13.0 g/dL (12.0-16.0) 06/08/20 09:45 Hct 41.5 % (36-48) 06/08/20 09:45 MCV 81 fL (79.0-98.0) 06/08/20 09:45 MCH 25 pg (27-31) L 06/08/20 09:45 MCHC 31 % (32-36) L 06/08/20 09:45 RDW 15.0 % (9.0-15.0) 06/08/20 09:45 Plt Count 277 K/uL (130-430) 06/08/20 09:45 MPV 8.6 fl (7.4-10.4) 06/08/20 09:45 Neut % (Auto) 60.4 % (40-70) 06/08/20 09:45 Lymph % (Auto) 30.0 % (20.5-51.5) 06/08/20 09:45 [place] % (Auto) 6.7 % (1.7-9.3) 06/08/20 09:45 Eos % (Auto) 1.8 % (0-4) 06/08/20 09:45 Baso % (Auto) 1.1 % (0.0-2.0) 06/08/20 09:45 Neut # (Auto) 3.2 K/uL (1.8-7.7) 06/08/20 09:45 Lymph # (Auto) 1.6 K/uL (1.0-5.5) 06/08/20 09:45 [place] # (Auto) 0.4 K/uL (0.0-1.0) 06/08/20 09:45 Eos # (Auto) 0.1 K/uL (0.0-0.4) 06/08/20 09:45 Baso # (Auto) 0.1 K/uL (0.0-0.2) 06/08/20 09:45 Sodium 137 mmol/L (136-145) 06/08/20 09:45 Potassium 4.1 mmol/L (3.5-5.1) 06/08/20 09:45 Chloride 105 mmol/L (98-107) 06/08/20 09:45 Carbon Dioxide 26 mmol/L (23-29) 06/08/20 09:45 Anion Gap 10 (5-15) 06/08/20 09:45 BUN 17 mg/dL (8-21) 06/08/20 09:45 Creatinine 0.78 mg/dL (0.70-1.30) 06/08/20 09:45 Glucose 100 mg/dL (70-99) H 06/08/20 09:45 POC Glucose 121 MG/DL (70 - 105) H 06/05/20 14:15 Hemoglobin A1c 7.0 % (4.8-5.6) H 06/08/20 09:45 Calcium 9.6 mg/dL (8.4-10.2) 06/08/20 09:45 Total Bilirubin 0.5 mg/dL (0.0-1.0) 06/08/20 09:45 AST 59 U/L (10-37) H 06/08/20 09:45 ALT 47 U/L (12-78) 06/08/20 09:45 Alkaline Phosphatase 92 U/L (46-116) 06/08/20 09:45 Total Protein 8.1 g/dL (6.4-8.3) 06/08/20 09:45 Albumin 3.3 g/dL (3.4-5.0) L 06/08/20 09:45 Triglycerides 114 mg/dL (30-150) 06/08/20 09:45 Cholesterol 125 mg/dL (<200) 06/08/20 09:45 LDL Cholesterol 68 mg/dL (0-129) 06/08/20 09:45 HDL Cholesterol 45 mg/dL (>55) L 06/08/20 09:45 Coronavirus (PCR) NOT DETECTED (NOT DETECTD) 06/11/20 10:16 - Physical Exam Vitals and I&O: Vital Signs Temp 97.5 F 06/12/20 14:00 Pulse 89 06/12/20 14:00 Resp 20 06/12/20 14:00 BP 117/81 06/12/20 14:00 Pulse Ox 95 06/12/20 14:00 Intake & Output 06/11/20 06/12/20 06/12/20 18:59 06:59 18:59 Intake Total 1300 120 Balance 1300 120 Intake: Oral 1300 120 Other: # Voids 3 Active Medications: Current Medications Acetaminophen (Tylenol) 650 mg PO Q4H PRN PRN Reason: Pain (Mild 1-3) Stop: 08/03/20 22:10 Acetaminophen (Tylenol Extra Strength) 1,000 mg PO Q6H PRN PRN Reason: Pain (Moderate 4-6) Stop: 08/03/20 22:10 Last Admin: 06/11/20 14:58 Dose: 1,000 mg Al Hydrox/Mg Hydrox/Simethicone (Maalox) 30 ml PO Q4HR PRN PRN Reason: GI DISTRESS Stop: 08/03/20 22:10 Last Admin: 06/12/20 14:57 Dose: 30 ml Atorvastatin Calcium (Lipitor) 40 mg PO HS ANNA Stop: 08/10/20 20:59 Last Admin: 06/11/20 20:25 Dose: 40 mg Furosemide (Lasix) 20 mg PO DAILY [facility] Stop: 08/06/20 14:14 Last Admin: 06/12/20 08:29 Dose: 20 mg Lorazepam (Ativan) 1 mg PO Q4HR PRN; Protocol PRN Reason: Anxiety Stop: 08/04/20 07:20 Last Admin: 06/12/20 13:16 Dose: 1 mg Magnesium Hydroxide (Milk Of Magnesia) 30 ml PO HS PRN PRN Reason: Constipation Metformin HCl (Glucophage) 500 mg PO BIDWM ANNA Stop: 08/05/20 09:59 Last Admin: 06/12/20 08:29 Dose: 500 mg Nicotine (Nicotine Transdermal System) 14 mg TD DAILY ANNA Stop: 08/04/20 08:59 Last Admin: 06/12/20 08:21 Dose: 14 mg Quetiapine Fumarate (Seroquel) 100 mg PO BID ANNA; Protocol Stop: 08/11/20 08:59 Quetiapine Fumarate 200 mg/ (Quetiapine Fumarate 50 mg) 250 mg PO HS ANNA Stop: 08/11/20 20:59 Trazodone HCl (Desyrel) 100 mg PO HS ANNA; Protocol Stop: 08/11/20 20:59 Zolpidem Tartrate (Ambien) 5 mg PO HS PRN PRN Reason: Insomnia Stop: 08/03/20 22:10 Last Admin: 06/11/20 21:23 Dose: 5 mg General: weak HEENT: NC/AT, PERRLA Neck: Supple Lungs: CTAB Cardiovascular: RRR, Normal S1, Normal S2 Abdomen: soft Extremities: clear Neurological: no change Internal Medicine Assmt/Plan - Assessment Assessment: 1. DM 2. HTN 3. Obesity - Plan Plan: reviewed blood sugar diaries continue glucophage continue htn meds d/w r.n. reviewed complete medical records Nutritional Asmnt/Malnutr-PDOC - Dietary Evaluation Malnutrition Findings (Please click <Entered> for more info): Nutritional Asmnt/Malnutrition Start: 06/08/20 11: 05 Text: Status: Complete Freq: Protocol: Document 06/08/20 11:05 EDWARD (Rec: 06/08/20 11:08 EDWARD MILY-CTXTS -01) Nutritional Asmnt/Malnutrition Patient General Information Nutritional Screening Moderate Risk Diagnosis Grave Disability hold Pertinent Medical Hx/Surgical Hx Hyperlipidemia, Bipolar disorder, Schizophrenia, Osteoarthritis, DM, CHF Subjective Information Pt is a 64-year-old male admitted on 06/04 d/t hold for grave disability. Pt is eating an estimated 100% of meals since admit date (x3 days) Per Meal/Nutrition Activity Record. Dietary is currently providing an estimated 1700 kcals and 95 gm Pro to meet 100% kcal and 100+% Pro needs. Anthropometrics HT: 56 WT: 230 LB (104.55 kg) ABW: 155 LB (70.45 kg) BMI: 37.12 (Obese, class II) GI/ Skin Integrity GI: WNL, Soft, Large BM: 06/07 x1 I/O: 1440/Not Noted Skin: WNL, Intact, BLE Edema Patrick: 19 Diet Order: CCHO, CRYSTAL Estimated Energy Needs: (Obese , ABW) 7660-1385 kcals (20-25 kcals/ kg) 55-70g Pro (0.8-1.0 g/kg) 9059-2698 ml (20-25 ml/kg) Current Diet Order/ Nutrition Support CCHO, CRYSTAL Pertinent Medications Maalox (PRN), Lipitor, Lasix, MOM (PRN), Metformin Pertinent Labs POC Glucose (06/04-06/05): 128, 121 Nutritional Hx/Data Height 1.68 m Height (Calculated Centimeters) 167.6 Current Weight (lbs) 104.326 kg Weight (Calculated Kilograms) 104.3 Weight (Calculated Grams) 140076.2 [place] Body Weight 130 LB (59.09 kg) % [place] Body Weight 177 Body Mass Index (BMI) 37.1 Weight Status Obese GI Symptoms Last BM 06/07 x1 Skin Integrity/Comment: Skin: WNL, Intact, BLE Edema Patrick: 19 Lasix in medication regimen Current %PO Good (75-100%) Estimated Nutritional Goals BEE in Kcals: Adj wt of IBW Calories/Kcals/Kg 20-25 Kcals Calculated 2365-5090 Protein: Adj wt of IBW Protein g/k.8-1.0 Protein Calculated 55-70 Fluid: ml 0556-1793 ml (20-25 ml/kg) Nutritional Problem 2. Problem Problem Impaired nutrient utilization Etiology r/t endocrine dysfunction Signs/Symptoms: aeb Hx DM, POC Glucose (06/04-): 128, 121. 1. Problem Problem Obese Etiology r/t chronic energy overconsumption Signs/Symptoms: aeb BMI >30 (37.12, obese class II). Malnutrition Related to Morbid Obesity Malnutrition related to morbid obesity No Intervention/Recommendation Comments 1.Continue [place], CRYSTAL diet as tolerated. 2.Continue antihyperglycemic medication for glucose control per MD order. Expected Outcomes/Goals Expected Outcomes/Goals 1.PO intake to continue to meet >75% of estimated nutritional needs. 2.Monitor PO intake, wt, nutrition related labs, and skin integrity. 3.Gradual weight loss (0.5-1.0 ) LB/ week trending toward IBW preferred. 4.F/U as low risk in 7-10 days , 06/15-06/18.
[2020-06-13] MEDS: Nicotine 14 mg/24 hr Tdm TD SCH (08:24)
--- NOTE | 2020-06-13 15:53 | Internal Medicine Prog Note ---
Internal Medicine Subjective - Subjective Service Date: 06/13/20 Patient seen and examined:: without staff Patient is:: awake Patient Complaints of:: congestion Per staff patient has:: no adverse event, no episodes of fall Internal Medicine Objective - Results Result Diagrams: 06/08/20 09:45 06/08/20 09:45 Recent Labs: Laboratory Last Values WBC 5.3 K/uL (4.8-10.8) 06/08/20 09:45 RBC 5.16 MIL/uL (4.2-6.2) 06/08/20 09:45 Hgb 13.0 g/dL (12.0-16.0) 06/08/20 09:45 Hct 41.5 % (36-48) 06/08/20 09:45 MCV 81 fL (79.0-98.0) 06/08/20 09:45 MCH 25 pg (27-31) L 06/08/20 09:45 MCHC 31 % (32-36) L 06/08/20 09:45 RDW 15.0 % (9.0-15.0) 06/08/20 09:45 Plt Count 277 K/uL (130-430) 06/08/20 09:45 MPV 8.6 fl (7.4-10.4) 06/08/20 09:45 Neut % (Auto) 60.4 % (40-70) 06/08/20 09:45 Lymph % (Auto) 30.0 % (20.5-51.5) 06/08/20 09:45 [place] % (Auto) 6.7 % (1.7-9.3) 06/08/20 09:45 Eos % (Auto) 1.8 % (0-4) 06/08/20 09:45 Baso % (Auto) 1.1 % (0.0-2.0) 06/08/20 09:45 Neut # (Auto) 3.2 K/uL (1.8-7.7) 06/08/20 09:45 Lymph # (Auto) 1.6 K/uL (1.0-5.5) 06/08/20 09:45 [place] # (Auto) 0.4 K/uL (0.0-1.0) 06/08/20 09:45 Eos # (Auto) 0.1 K/uL (0.0-0.4) 06/08/20 09:45 Baso # (Auto) 0.1 K/uL (0.0-0.2) 06/08/20 09:45 Sodium 137 mmol/L (136-145) 06/08/20 09:45 Potassium 4.1 mmol/L (3.5-5.1) 06/08/20 09:45 Chloride 105 mmol/L (98-107) 06/08/20 09:45 Carbon Dioxide 26 mmol/L (23-29) 06/08/20 09:45 Anion Gap 10 (5-15) 06/08/20 09:45 BUN 17 mg/dL (8-21) 06/08/20 09:45 Creatinine 0.78 mg/dL (0.70-1.30) 06/08/20 09:45 Glucose 100 mg/dL (70-99) H 06/08/20 09:45 POC Glucose 121 MG/DL (70 - 105) H 06/05/20 14:15 Hemoglobin A1c 7.0 % (4.8-5.6) H 06/08/20 09:45 Calcium 9.6 mg/dL (8.4-10.2) 06/08/20 09:45 Total Bilirubin 0.5 mg/dL (0.0-1.0) 06/08/20 09:45 AST 59 U/L (10-37) H 06/08/20 09:45 ALT 47 U/L (12-78) 06/08/20 09:45 Alkaline Phosphatase 92 U/L (46-116) 06/08/20 09:45 Total Protein 8.1 g/dL (6.4-8.3) 06/08/20 09:45 Albumin 3.3 g/dL (3.4-5.0) L 06/08/20 09:45 Triglycerides 114 mg/dL (30-150) 06/08/20 09:45 Cholesterol 125 mg/dL (<200) 06/08/20 09:45 LDL Cholesterol 68 mg/dL (0-129) 06/08/20 09:45 HDL Cholesterol 45 mg/dL (>55) L 06/08/20 09:45 Coronavirus (PCR) NOT DETECTED (NOT DETECTD) 06/11/20 10:16 - Physical Exam Vitals and I&O: Vital Signs Temp 97.0 F 06/13/20 14:00 Pulse 98 06/13/20 14:00 Resp 20 06/13/20 14:00 BP 133/99 06/13/20 14:00 Pulse Ox 96 06/13/20 14:00 Intake & Output 06/12/20 06/13/20 06/13/20 18:59 06:59 18:59 Intake Total 1200 120 Balance 1200 120 Intake: Oral 1200 120 Other: # Voids 4 3 # Bowel Movements 1 Active Medications: Current Medications Acetaminophen (Tylenol) 650 mg PO Q4H PRN PRN Reason: Pain (Mild 1-3) Stop: 08/03/20 22:10 Last Admin: 06/13/20 15:51 Dose: 650 mg Acetaminophen (Tylenol Extra Strength) 1,000 mg PO Q6H PRN PRN Reason: Pain (Moderate 4-6) Stop: 08/03/20 22:10 Last Admin: 06/11/20 14:58 Dose: 1,000 mg Al Hydrox/Mg Hydrox/Simethicone (Maalox) 30 ml PO Q4HR PRN PRN Reason: GI DISTRESS Stop: 08/03/20 22:10 Last Admin: 06/12/20 14:57 Dose: 30 ml Atorvastatin Calcium (Lipitor) 40 mg PO HS ANNA Stop: 08/10/20 20:59 Last Admin: 06/12/20 21:55 Dose: 40 mg Furosemide (Lasix) 20 mg PO DAILY [facility] Stop: 08/06/20 14:14 Last Admin: 06/13/20 08:24 Dose: 20 mg Lorazepam (Ativan) 1 mg PO Q4HR PRN; Protocol PRN Reason: Anxiety Stop: 08/04/20 07:20 Last Admin: 06/13/20 15:51 Dose: 1 mg Magnesium Hydroxide (Milk Of Magnesia) 30 ml PO HS PRN PRN Reason: Constipation Metformin HCl (Glucophage) 500 mg PO BIDWM [facility] Stop: 08/05/20 09:59 Last Admin: 06/13/20 08:24 Dose: 500 mg Nicotine (Nicotine Transdermal System) 14 mg TD DAILY [facility] Stop: 08/04/20 08:59 Last Admin: 06/13/20 08:24 Dose: 14 mg Quetiapine Fumarate (Seroquel) 100 mg PO BID ANNA; Protocol Stop: 08/11/20 08:59 Last Admin: 06/13/20 08:25 Dose: 100 mg Quetiapine Fumarate (Seroquel) 300 mg PO HS ANNA Stop: 08/12/20 20:59 Trazodone HCl (Desyrel) 100 mg PO HS ANNA; Protocol Stop: 08/11/20 20:59 Last Admin: 06/12/20 21:56 Dose: 100 mg Zolpidem Tartrate (Ambien) 5 mg PO HS PRN PRN Reason: Insomnia Stop: 08/03/20 22:10 Last Admin: 06/12/20 22:20 Dose: 5 mg General: weak HEENT: NC/AT, PERRLA Neck: Supple Lungs: CTAB Cardiovascular: RRR, Normal S1, Normal S2 Abdomen: soft Extremities: clear Neurological: no change Internal Medicine Assmt/Plan - Assessment Assessment: 1. DM 2. HTN 3. Obesity - Plan Plan: reviewed blood sugar diaries continue glucophage continue htn meds d/w r.n. reviewed complete medical records Nutritional Asmnt/Malnutr-PDOC - Dietary Evaluation Malnutrition Findings (Please click <Entered> for more info): Nutritional Asmnt/Malnutrition Start: 06/08/20 11: 05 Text: Status: Complete Freq: Protocol: Document 06/08/20 11:05 EDWARD (Rec: 06/08/20 11:08 EDWARD [id number]) Nutritional Asmnt/Malnutrition Patient General Information Nutritional Screening Moderate Risk Diagnosis Grave Disability hold Pertinent Medical Hx/Surgical Hx Hyperlipidemia, Bipolar disorder, Schizophrenia, Osteoarthritis, DM, CHF Subjective Information Pt is a 64-year-old male admitted on 06/04 d/t hold for grave disability. Pt is eating an estimated 100% of meals since admit date (x3 days) Per Meal/Nutrition Activity Record. Dietary is currently providing an estimated 1700 kcals and 95 gm Pro to meet 100% kcal and 100+% Pro needs. Anthropometrics HT: 56 WT: 230 LB (104.55 kg) ABW: 155 LB (70.45 kg) BMI: 37.12 (Obese, class II) GI/ Skin Integrity GI: WNL, Soft, Large BM: 06/07 x1 I/O: 1440/Not Noted Skin: WNL, Intact, BLE Edema Patrick: 19 Diet Order: [facility], [place] Estimated Energy Needs: (Obese , ABW) 3408-0819 kcals (20-25 kcals/ kg) 55-70g Pro (0.8-1.0 g/kg) 8318-2642 ml (20-25 ml/kg) Current Diet [facility]/ [facility] Pertinent Medications Maalox (PRN), Lipitor, Lasix, MOM (PRN), Metformin Pertinent Labs POC Glucose (06/04-06/05): 128, 121 Nutritional Hx/Data Height 1.68 m Height (Calculated Centimeters) 167.6 Current Weight (lbs) 104.326 kg Weight (Calculated Kilograms) 104.3 Weight (Calculated Grams) 119433.2 [place] Body Weight 130 LB (59.09 kg) % [place] Body Weight 177 Body Mass Index (BMI) 37.1 Weight Status Obese GI Symptoms Last BM 06/07 x1 Skin Integrity/Comment: Skin: WNL, Intact, BLE Edema Patrick: 19 Lasix in medication regimen Current %PO Good (75-100%) Estimated Nutritional Goals BEE in Kcals: Adj wt of IBW Calories/Kcals/Kg 20-25 Kcals Calculated 5947-6262 Protein: Adj wt of IBW Protein g/k.8-1.0 Protein Calculated 55-70 Fluid: ml 3986-4716 ml (20-25 ml/kg) Nutritional Problem 2. Problem Problem Impaired nutrient utilization Etiology r/t endocrine dysfunction Signs/Symptoms: aeb Hx DM, POC Glucose (06/04-): 128, 121. 1. Problem Problem Obese Etiology r/t chronic energy overconsumption Signs/Symptoms: aeb BMI >30 (37.12, obese class II). Malnutrition Related to Morbid Obesity Malnutrition related to morbid obesity No Intervention/Recommendation Comments 1.Continue [facility], [place] diet as tolerated. 2.Continue antihyperglycemic medication for glucose control per MD order. Expected Outcomes/Goals Expected Outcomes/Goals 1.PO intake to continue to meet >75% of estimated nutritional needs. 2.Monitor PO intake, wt, nutrition related labs, and skin integrity. 3.Gradual weight loss (0.5-1.0 ) LB/ week trending toward IBW preferred. 4.F/U as low risk in 7-10 days , 06/15-06/18.
--- NOTE | 2020-06-13 18:01 | Progress Notes ---
DATE: 06/13/2020 PSYCHIATRIC PROGRESS NOTE SUBJECTIVE: Chart reviewed and the patient interviewed. Also discussed the patient's condition with the staff and reviewed records and labs. The patient continued to be in irritable and angry mood. The patient also is still restless and she is still easily agitated and is suspicious and paranoid. 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 The patient also is still rambling and is still having problems controlling her temper, her mood. Also, still has difficulty sleeping at night. Otherwise, the patient is compliant with taking medications with no side effects of medications. ASSESSMENT: The patient is still irritable and agitated and exhibiting manic behavior. TREATMENT PLAN: Continue to monitor behavior and condition closely. Also, we will increase Seroquel to 100 mg twice a day and 300 mg at bedtime and we will continue to follow up her behavior and condition closely. JOB# [id number]
--- NOTE | 2020-06-13 18:16 | Progress Notes ---
DATE: 06/12/2020 Chart reviewed and the patient interviewed. Also discussed the patient's condition with the staff and reviewed records and labs. "I have nightmares and I am waking up in the morning." The patient also still has disorganized thoughts and has grandiose delusions of being [employer] in [employer]. She also still exhibiting manic behavior including singing and dancing in the hallway. Otherwise, the patient has continued to comply with taking her medications with no side effects of medications. ASSESSMENT: The patient is still exhibiting manic behavior and is still in irritable mood. TREATMENT PLAN: We will continue to monitor behavior closely. Also, we will increase Seroquel to 100 mg twice a day and 250 mg at bedtime. Also, we will add trazodone in a dose of 100 mg at bedtime, hopefully to help with her insomnia. At the same time, we will discontinue Risperdal and we will continue to work on behavior modification and her manic behavior. [facility]# [id number]
[2020-06-14] MEDS: Nicotine 14 mg/24 hr Tdm TD SCH (08:30)
--- NOTE | 2020-06-14 11:28 | Progress Notes ---
DATE: 06/14/2020 COVERING PHYSICIAN: Malia Griffin M.D. SUBJECTIVE: The patient was interviewed. Case was discussed with staff. Chart and records were reviewed. Per the staff, the patient has been hyperverbal, intrusive, yelling. However, she has been medication adherent. The patient was visited today in the dayroom. The patient is extremely loud. She gets very angry, agitated, very delusional, talking about incoherent topics, difficult to redirect. Interview was terminated due to her escalating behavior. MENTAL STATUS EXAMINATION: The patient appears her stated age, appears restless, anxious, loud, hyperverbal speech. Mood and affect appear to be labile. Thought process appears to be disorganized. Unable to assess for any suicidal or homicidal thoughts, but the patient is internally preoccupied, also grandiose and bizarre delusions. Alert and oriented x 2. Insight, judgment and impulse control appear to be poor. ASSESSMENT AND PLAN: The patient continues to meet acute inpatient psychiatric hospitalization criteria given the severity of her symptoms. We will continue her medications as prescribed. We will encourage the patient to verbalize her needs and encourage the patient to participate in group and milieu therapy. JOB# [id number]
--- NOTE | 2020-06-14 14:41 | Internal Medicine Prog Note ---
Internal Medicine Subjective - Subjective Service Date: 06/14/20 Patient seen and examined:: without staff Patient is:: awake Patient Complaints of:: congestion Per staff patient has:: no adverse event, no episodes of fall Internal Medicine Objective - Results Result Diagrams: 06/08/20 09:45 06/08/20 09:45 Recent Labs: Laboratory Last Values WBC 5.3 K/uL (4.8-10.8) 06/08/20 09:45 RBC 5.16 MIL/uL (4.2-6.2) 06/08/20 09:45 Hgb 13.0 g/dL (12.0-16.0) 06/08/20 09:45 Hct 41.5 % (36-48) 06/08/20 09:45 MCV 81 fL (79.0-98.0) 06/08/20 09:45 MCH 25 pg (27-31) L 06/08/20 09:45 MCHC 31 % (32-36) L 06/08/20 09:45 RDW 15.0 % (9.0-15.0) 06/08/20 09:45 Plt Count 277 K/uL (130-430) 06/08/20 09:45 MPV 8.6 fl (7.4-10.4) 06/08/20 09:45 Neut % (Auto) 60.4 % (40-70) 06/08/20 09:45 Lymph % (Auto) 30.0 % (20.5-51.5) 06/08/20 09:45 [place] % (Auto) 6.7 % (1.7-9.3) 06/08/20 09:45 Eos % (Auto) 1.8 % (0-4) 06/08/20 09:45 Baso % (Auto) 1.1 % (0.0-2.0) 06/08/20 09:45 Neut # (Auto) 3.2 K/uL (1.8-7.7) 06/08/20 09:45 Lymph # (Auto) 1.6 K/uL (1.0-5.5) 06/08/20 09:45 [place] # (Auto) 0.4 K/uL (0.0-1.0) 06/08/20 09:45 Eos # (Auto) 0.1 K/uL (0.0-0.4) 06/08/20 09:45 Baso # (Auto) 0.1 K/uL (0.0-0.2) 06/08/20 09:45 Sodium 137 mmol/L (136-145) 06/08/20 09:45 Potassium 4.1 mmol/L (3.5-5.1) 06/08/20 09:45 Chloride 105 mmol/L (98-107) 06/08/20 09:45 Carbon Dioxide 26 mmol/L (23-29) 06/08/20 09:45 Anion Gap 10 (5-15) 06/08/20 09:45 BUN 17 mg/dL (8-21) 06/08/20 09:45 Creatinine 0.78 mg/dL (0.70-1.30) 06/08/20 09:45 Glucose 100 mg/dL (70-99) H 06/08/20 09:45 POC Glucose 121 MG/DL (70 - 105) H 06/05/20 14:15 Hemoglobin A1c 7.0 % (4.8-5.6) H 06/08/20 09:45 Calcium 9.6 mg/dL (8.4-10.2) 06/08/20 09:45 Total Bilirubin 0.5 mg/dL (0.0-1.0) 06/08/20 09:45 AST 59 U/L (10-37) H 06/08/20 09:45 ALT 47 U/L (12-78) 06/08/20 09:45 Alkaline Phosphatase 92 U/L (46-116) 06/08/20 09:45 Total Protein 8.1 g/dL (6.4-8.3) 06/08/20 09:45 Albumin 3.3 g/dL (3.4-5.0) L 06/08/20 09:45 Triglycerides 114 mg/dL (30-150) 06/08/20 09:45 Cholesterol 125 mg/dL (<200) 06/08/20 09:45 LDL Cholesterol 68 mg/dL (0-129) 06/08/20 09:45 HDL Cholesterol 45 mg/dL (>55) L 06/08/20 09:45 Coronavirus (PCR) NOT DETECTED (NOT DETECTD) 06/11/20 10:16 - Physical Exam Vitals and I&O: Vital Signs Temp 98.5 F 06/14/20 06:07 Pulse 74 06/14/20 06:07 Resp 16 06/14/20 07:46 BP 115/71 06/14/20 08:33 Pulse Ox 95 06/14/20 06:07 Intake & Output 06/13/20 06/14/20 06/14/20 18:59 06:59 18:59 Intake Total 1200 720 Balance 1200 720 Intake: Oral 1200 720 Other: # Voids 4 2 # Bowel Movements 1 1 Active Medications: Current Medications Acetaminophen (Tylenol) 650 mg PO Q4H PRN PRN Reason: Pain (Mild 1-3) Stop: 08/03/20 22:10 Last Admin: 06/14/20 11:22 Dose: 650 mg Acetaminophen (Tylenol Extra Strength) 1,000 mg PO Q6H PRN PRN Reason: Pain (Moderate 4-6) Stop: 08/03/20 22:10 Last Admin: 06/11/20 14:58 Dose: 1,000 mg Al Hydrox/Mg Hydrox/Simethicone (Maalox) 30 ml PO Q4HR PRN PRN Reason: GI DISTRESS Stop: 08/03/20 22:10 Last Admin: 06/12/20 14:57 Dose: 30 ml Atorvastatin Calcium (Lipitor) 40 mg PO HS ANNA Stop: 08/10/20 20:59 Last Admin: 06/13/20 21:06 Dose: 40 mg Furosemide (Lasix) 20 mg PO DAILY [facility] Stop: 08/06/20 14:14 Last Admin: 06/14/20 08:33 Dose: 20 mg Lorazepam (Ativan) 1 mg PO Q4HR PRN; Protocol PRN Reason: Anxiety Stop: 08/04/20 07:20 Last Admin: 06/14/20 05:47 Dose: 1 mg Magnesium Hydroxide (Milk Of Magnesia) 30 ml PO HS PRN PRN Reason: Constipation Metformin HCl (Glucophage) 500 mg PO BIDWM ANNA Stop: 08/05/20 09:59 Last Admin: 06/14/20 08:33 Dose: 500 mg Nicotine (Nicotine Transdermal System) 14 mg TD DAILY [facility] Stop: 08/04/20 08:59 Last Admin: 06/14/20 08:30 Dose: 14 mg Quetiapine Fumarate (Seroquel) 100 mg PO BID ANNA; Protocol Stop: 08/11/20 08:59 Last Admin: 06/14/20 08:34 Dose: 100 mg Quetiapine Fumarate (Seroquel) 300 mg PO HS ANNA Stop: 08/12/20 20:59 Last Admin: 06/13/20 21:06 Dose: 300 mg Trazodone HCl (Desyrel) 100 mg PO HS ANNA; Protocol Stop: 08/11/20 20:59 Last Admin: 06/13/20 21:06 Dose: 100 mg Zolpidem Tartrate (Ambien) 5 mg PO HS PRN PRN Reason: Insomnia Stop: 08/03/20 22:10 Last Admin: 06/14/20 02:38 Dose: 5 mg General: weak HEENT: NC/AT, PERRLA Neck: Supple Lungs: CTAB Cardiovascular: RRR, Normal S1, Normal S2 Abdomen: soft Extremities: clear Neurological: no change Internal Medicine Assmt/Plan - Assessment Assessment: 1. DM 2. HTN 3. Obesity - Plan Plan: reviewed blood sugar diaries continue glucophage continue htn meds d/w r.n. reviewed complete medical records Nutritional Asmnt/Malnutr-PDOC - Dietary Evaluation Malnutrition Findings (Please click <Entered> for more info): Nutritional Asmnt/Malnutrition Start: 06/08/20 11: 05 Text: Status: Complete Freq: Protocol: Document 06/08/20 11:05 EDWARD (Rec: 06/08/20 11:08 EDWARD [id number]) Nutritional Asmnt/Malnutrition Patient General Information Nutritional Screening Moderate Risk Diagnosis Grave Disability hold Pertinent Medical Hx/Surgical Hx Hyperlipidemia, Bipolar disorder, Schizophrenia, Osteoarthritis, DM, CHF Subjective Information Pt is a 64-year-old male admitted on 06/04 d/t hold for grave disability. Pt is eating an estimated 100% of meals since admit date (x3 days) Per Meal/Nutrition Activity Record. Dietary is currently providing an estimated 1700 kcals and 95 gm Pro to meet 100% kcal and 100+% Pro needs. Anthropometrics HT: 56 WT: 230 LB (104.55 kg) ABW: 155 LB (70.45 kg) BMI: 37.12 (Obese, class II) GI/ Skin Integrity GI: WNL, Soft, Large BM: 06/07 x1 I/O: 1440/Not Noted Skin: WNL, Intact, BLE Edema Patrick: 19 [facility] [place] Estimated Energy Needs: (Obese , ABW) 7758-5082 kcals (20-25 kcals/ kg) 55-70g Pro (0.8-1.0 g/kg) 2723-8632 ml (20-25 ml/kg) Current Diet Order/ Nutrition Support [facility] [place] Pertinent Medications Maalox (PRN), Lipitor, Lasix, MOM (PRN), Metformin Pertinent Labs POC Glucose (06/04-06/05): 128, 121 Nutritional Hx/Data Height 1.68 m Height (Calculated Centimeters) 167.6 Current Weight (lbs) 104.326 kg Weight (Calculated Kilograms) 104.3 Weight (Calculated Grams) 661064.2 [place] Body Weight 130 LB (59.09 kg) % [place] Body Weight 177 Body Mass Index (BMI) 37.1 Weight Status Obese GI Symptoms Last BM 06/07 x1 Skin Integrity/Comment: Skin: WNL, Intact, BLE Edema Patrick: 19 Lasix in medication regimen Current %PO Good (75-100%) Estimated Nutritional Goals BEE in Kcals: Adj wt of IBW Calories/Kcals/Kg 20-25 Kcals Calculated 4583-4856 Protein: Adj wt of IBW Protein g/k.8-1.0 Protein Calculated 55-70 Fluid: ml 3257-6793 ml (20-25 ml/kg) Nutritional Problem 2. Problem Problem Impaired nutrient utilization Etiology r/t endocrine dysfunction Signs/Symptoms: aeb Hx DM, POC Glucose (06/04-): 128, 121. 1. Problem Problem Obese Etiology r/t chronic energy overconsumption Signs/Symptoms: aeb BMI >30 (37.12, obese class II). Malnutrition Related to Morbid Obesity Malnutrition related to morbid obesity No Intervention/Recommendation Comments 1.[facility] [place] diet as tolerated. 2.Continue antihyperglycemic medication for glucose control per MD order. Expected Outcomes/Goals Expected Outcomes/Goals 1.PO intake to continue to meet >75% of estimated nutritional needs. 2.Monitor PO intake, wt, nutrition related labs, and skin integrity. 3.Gradual weight loss (0.5-1.0 ) LB/ week trending toward IBW preferred. 4.F/U as low risk in 7-10 days , 06/15-06/18.
[2020-06-15] MEDS: Acetaminophen 500 MG TAB PO PRN (01:08)
[2020-06-15] MEDS: Nicotine 14 mg/24 hr Tdm TD SCH (08:18)
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
--- NOTE | 2020-06-15 14:24 | Internal Medicine Prog Note ---
Internal Medicine Subjective - Subjective Service Date: 06/15/20 Patient seen and examined:: without staff Patient is:: awake Patient Complaints of:: congestion Per staff patient has:: no adverse event, no episodes of fall Internal Medicine Objective - Results Result Diagrams: 06/08/20 09:45 06/08/20 09:45 Recent Labs: Laboratory Last Values WBC 5.3 K/uL (4.8-10.8) 06/08/20 09:45 RBC 5.16 MIL/uL (4.2-6.2) 06/08/20 09:45 Hgb 13.0 g/dL (12.0-16.0) 06/08/20 09:45 Hct 41.5 % (36-48) 06/08/20 09:45 MCV 81 fL (79.0-98.0) 06/08/20 09:45 MCH 25 pg (27-31) L 06/08/20 09:45 MCHC 31 % (32-36) L 06/08/20 09:45 RDW 15.0 % (9.0-15.0) 06/08/20 09:45 Plt Count 277 K/uL (130-430) 06/08/20 09:45 MPV 8.6 fl (7.4-10.4) 06/08/20 09:45 Neut % (Auto) 60.4 % (40-70) 06/08/20 09:45 Lymph % (Auto) 30.0 % (20.5-51.5) 06/08/20 09:45 [place] % (Auto) 6.7 % (1.7-9.3) 06/08/20 09:45 Eos % (Auto) 1.8 % (0-4) 06/08/20 09:45 Baso % (Auto) 1.1 % (0.0-2.0) 06/08/20 09:45 Neut # (Auto) 3.2 K/uL (1.8-7.7) 06/08/20 09:45 Lymph # (Auto) 1.6 K/uL (1.0-5.5) 06/08/20 09:45 [place] # (Auto) 0.4 K/uL (0.0-1.0) 06/08/20 09:45 Eos # (Auto) 0.1 K/uL (0.0-0.4) 06/08/20 09:45 Baso # (Auto) 0.1 K/uL (0.0-0.2) 06/08/20 09:45 Sodium 137 mmol/L (136-145) 06/08/20 09:45 Potassium 4.1 mmol/L (3.5-5.1) 06/08/20 09:45 Chloride 105 mmol/L (98-107) 06/08/20 09:45 Carbon Dioxide 26 mmol/L (23-29) 06/08/20 09:45 Anion Gap 10 (5-15) 06/08/20 09:45 BUN 17 mg/dL (8-21) 06/08/20 09:45 Creatinine 0.78 mg/dL (0.70-1.30) 06/08/20 09:45 Glucose 100 mg/dL (70-99) H 06/08/20 09:45 POC Glucose 95 MG/DL (70 - 105) 06/15/20 11:35 Hemoglobin A1c 7.0 % (4.8-5.6) H 06/08/20 09:45 Calcium 9.6 mg/dL (8.4-10.2) 06/08/20 09:45 Total Bilirubin 0.5 mg/dL (0.0-1.0) 06/08/20 09:45 AST 59 U/L (10-37) H 06/08/20 09:45 ALT 47 U/L (12-78) 06/08/20 09:45 Alkaline Phosphatase 92 U/L (46-116) 06/08/20 09:45 Total Protein 8.1 g/dL (6.4-8.3) 06/08/20 09:45 Albumin 3.3 g/dL (3.4-5.0) L 06/08/20 09:45 Triglycerides 114 mg/dL (30-150) 06/08/20 09:45 Cholesterol 125 mg/dL (<200) 06/08/20 09:45 LDL Cholesterol 68 mg/dL (0-129) 06/08/20 09:45 HDL Cholesterol 45 mg/dL (>55) L 06/08/20 09:45 Coronavirus (PCR) NOT DETECTED (NOT DETECTD) 06/11/20 10:16 - Physical Exam Vitals and I&O: Vital Signs Temp 97.4 F 06/15/20 05:57 Pulse 70 06/15/20 05:57 Resp 16 06/15/20 07:44 BP 103/62 06/15/20 08:19 Pulse Ox 96 06/15/20 05:57 Intake & Output 06/14/20 06/15/20 06/15/20 18:59 06:59 18:59 Intake Total 1200 240 Balance 1200 240 Intake: Oral 1200 240 Other: # Voids 4 2 # Bowel Movements 1 Active Medications: Current Medications Acetaminophen (Tylenol) 650 mg PO Q4H PRN PRN Reason: Pain (Mild 1-3) Stop: 08/03/20 22:10 Last Admin: 06/14/20 11:22 Dose: 650 mg Acetaminophen (Tylenol Extra Strength) 1,000 mg PO Q6H PRN PRN Reason: Pain (Moderate 4-6) Stop: 08/03/20 22:10 Last Admin: 06/15/20 01:08 Dose: 1,000 mg Al Hydrox/Mg Hydrox/Simethicone (Maalox) 30 ml PO Q4HR PRN PRN Reason: GI DISTRESS Stop: 08/03/20 22:10 Last Admin: 06/12/20 14:57 Dose: 30 ml Atorvastatin Calcium (Lipitor) 40 mg PO HS [facility] Stop: 08/10/20 20:59 Last Admin: 06/14/20 21:23 Dose: 40 mg Furosemide (Lasix) 20 mg PO DAILY [facility] Stop: 08/06/20 14:14 Last Admin: 06/15/20 08:19 Dose: 20 mg Lorazepam (Ativan) 1 mg PO Q4HR PRN; Protocol PRN Reason: Anxiety Stop: 08/04/20 07:20 Last Admin: 06/15/20 04:24 Dose: 1 mg Magnesium Hydroxide (Milk Of Magnesia) 30 ml PO HS PRN PRN Reason: Constipation Metformin HCl (Glucophage) 500 mg PO BIDWM [facility] Stop: 08/05/20 09:59 Last Admin: 06/15/20 08:19 Dose: 500 mg Nicotine (Nicotine Transdermal System) 14 mg TD DAILY [facility] Stop: 08/04/20 08:59 Last Admin: 06/15/20 08:18 Dose: 14 mg Quetiapine Fumarate (Seroquel) 100 mg PO BID [facility]; Protocol Stop: 08/11/20 08:59 Last Admin: 06/15/20 08:18 Dose: 100 mg Quetiapine Fumarate (Seroquel) 300 mg PO HS [facility] Stop: 08/12/20 20:59 Last Admin: 06/14/20 21:23 Dose: 300 mg Trazodone HCl (Desyrel) 100 mg PO HS [facility]NA; Protocol Stop: 08/11/20 20:59 Last Admin: 06/14/20 21:23 Dose: 100 mg Zolpidem Tartrate (Ambien) 5 mg PO HS PRN PRN Reason: Insomnia Stop: 08/03/20 22:10 Last Admin: 06/14/20 02:38 Dose: 5 mg General: weak HEENT: NC/AT, PERRLA Neck: Supple Lungs: CTAB Cardiovascular: RRR, Normal S1, Normal S2 Abdomen: soft Extremities: clear Neurological: no change Internal Medicine Assmt/Plan - Assessment Assessment: 1. DM 2. HTN 3. Obesity - Plan Plan: reviewed blood sugar diaries continue glucophage continue htn meds d/w r.n. reviewed complete medical records Nutritional Asmnt/Malnutr-PDOC - Dietary Evaluation Malnutrition Findings (Please click <Entered> for more info): Nutritional Asmnt/Malnutrition Start: 06/08/20 11: 05 Text: Status: Complete Freq: Protocol: Document 06/08/20 11:05 EDWARD (Rec: 06/08/20 11:08 EDWARD [id number]) Nutritional Asmnt/Malnutrition Patient General Information Nutritional Screening Moderate Risk Diagnosis Grave Disability hold Pertinent Medical Hx/Surgical Hx Hyperlipidemia, Bipolar disorder, Schizophrenia, Osteoarthritis, DM, CHF Subjective Information Pt is a 64-year-old male admitted on 06/04 d/t hold for grave disability. Pt is eating an estimated 100% of meals since admit date (x3 days) Per Meal/Nutrition Activity Record. Dietary is currently providing an estimated 1700 kcals and 95 gm Pro to meet 100% kcal and 100+% Pro needs. Anthropometrics HT: 56 WT: 230 LB (104.55 kg) ABW: 155 LB (70.45 kg) BMI: 37.12 (Obese, class II) GI/ Skin Integrity GI: WNL, Soft, Large BM: 06/07 x1 I/O: 1440/Not Noted Skin: WNL, Intact, BLE Edema Patrick: 19 Diet Order: [facility] [place] Estimated Energy Needs: (Obese , ABW) 9828-7783 kcals (20-25 kcals/ kg) 55-70g Pro (0.8-1.0 g/kg) 4049-0674 ml (20-25 ml/kg) Current Diet Order/ Nutrition Support [facility] [place] Pertinent Medications Maalox (PRN), Lipitor, Lasix, MOM (PRN), Metformin Pertinent Labs POC Glucose (06/04-06/05): 128, 121 Nutritional Hx/Data Height 1.68 m Height (Calculated Centimeters) 167.6 Current Weight (lbs) 104.326 kg Weight (Calculated Kilograms) 104.3 Weight (Calculated Grams) 451944.2 [place] Body Weight 130 LB (59.09 kg) % [place] Body Weight 177 Body Mass Index (BMI) 37.1 Weight Status Obese GI Symptoms Last BM 06/07 x1 Skin Integrity/Comment: Skin: WNL, Intact, BLE Edema Patrick: 19 Lasix in medication regimen Current %PO Good (75-100%) Estimated Nutritional Goals BEE in Kcals: Adj wt of IBW Calories/Kcals/Kg 20-25 Kcals Calculated 7181-1049 Protein: Adj wt of IBW Protein g/k.8-1.0 Protein Calculated 55-70 Fluid: ml 4632-1134 ml (20-25 ml/kg) Nutritional Problem 2. Problem Problem Impaired nutrient utilization Etiology r/t endocrine dysfunction Signs/Symptoms: aeb Hx DM, POC Glucose (06/04-): 128, 121. 1. Problem Problem Obese Etiology r/t chronic energy overconsumption Signs/Symptoms: aeb BMI >30 (37.12, obese class II). Malnutrition Related to Morbid Obesity Malnutrition related to morbid obesity No Intervention/Recommendation Comments 1.Continue [facility] [place] diet as tolerated. 2.Continue antihyperglycemic medication for glucose control per MD order. Expected Outcomes/Goals Expected Outcomes/Goals 1.PO intake to continue to meet >75% of estimated nutritional needs. 2.Monitor PO intake, wt, nutrition related labs, and skin integrity. 3.Gradual weight loss (0.5-1.0 ) LB/ week trending toward IBW preferred. 4.F/U as low risk in 7-10 days , 8/23-06/18.
[2020-06-16] MEDS: Nicotine 14 mg/24 hr Tdm TD SCH (08:10)
[2020-06-16] MEDS: NYSTATIN 100000 UNITS/GM POWD TP SCH ×2 (13:55→17:09)
--- NOTE | 2020-06-16 14:30 | Internal Medicine Prog Note ---
Internal Medicine Subjective - Subjective Service Date: 06/16/20 Patient seen and examined:: without staff Patient is:: awake Patient Complaints of:: congestion Per staff patient has:: no adverse event, no episodes of fall Internal Medicine Objective - Results Result Diagrams: 06/08/20 09:45 06/08/20 09:45 Recent Labs: Laboratory Last Values WBC 5.3 K/uL (4.8-10.8) 06/08/20 09:45 RBC 5.16 MIL/uL (4.2-6.2) 06/08/20 09:45 Hgb 13.0 g/dL (12.0-16.0) 06/08/20 09:45 Hct 41.5 % (36-48) 06/08/20 09:45 MCV 81 fL (79.0-98.0) 06/08/20 09:45 MCH 25 pg (27-31) L 06/08/20 09:45 MCHC 31 % (32-36) L 06/08/20 09:45 RDW 15.0 % (9.0-15.0) 06/08/20 09:45 Plt Count 277 K/uL (130-430) 06/08/20 09:45 MPV 8.6 fl (7.4-10.4) 06/08/20 09:45 Neut % (Auto) 60.4 % (40-70) 06/08/20 09:45 Lymph % (Auto) 30.0 % (20.5-51.5) 06/08/20 09:45 [place] % (Auto) 6.7 % (1.7-9.3) 06/08/20 09:45 Eos % (Auto) 1.8 % (0-4) 06/08/20 09:45 Baso % (Auto) 1.1 % (0.0-2.0) 06/08/20 09:45 Neut # (Auto) 3.2 K/uL (1.8-7.7) 06/08/20 09:45 Lymph # (Auto) 1.6 K/uL (1.0-5.5) 06/08/20 09:45 [place] # (Auto) 0.4 K/uL (0.0-1.0) 06/08/20 09:45 Eos # (Auto) 0.1 K/uL (0.0-0.4) 06/08/20 09:45 Baso # (Auto) 0.1 K/uL (0.0-0.2) 06/08/20 09:45 Sodium 137 mmol/L (136-145) 06/08/20 09:45 Potassium 4.1 mmol/L (3.5-5.1) 06/08/20 09:45 Chloride 105 mmol/L (98-107) 06/08/20 09:45 Carbon Dioxide 26 mmol/L (23-29) 06/08/20 09:45 Anion Gap 10 (5-15) 06/08/20 09:45 BUN 17 mg/dL (8-21) 06/08/20 09:45 Creatinine 0.78 mg/dL (0.70-1.30) 06/08/20 09:45 Glucose 100 mg/dL (70-99) H 06/08/20 09:45 POC Glucose 95 MG/DL (70 - 105) 06/15/20 11:35 Hemoglobin A1c 7.0 % (4.8-5.6) H 06/08/20 09:45 Calcium 9.6 mg/dL (8.4-10.2) 06/08/20 09:45 Total Bilirubin 0.5 mg/dL (0.0-1.0) 06/08/20 09:45 AST 59 U/L (10-37) H 06/08/20 09:45 ALT 47 U/L (12-78) 06/08/20 09:45 Alkaline Phosphatase 92 U/L (46-116) 06/08/20 09:45 Total Protein 8.1 g/dL (6.4-8.3) 06/08/20 09:45 Albumin 3.3 g/dL (3.4-5.0) L 06/08/20 09:45 Triglycerides 114 mg/dL (30-150) 06/08/20 09:45 Cholesterol 125 mg/dL (<200) 06/08/20 09:45 LDL Cholesterol 68 mg/dL (0-129) 06/08/20 09:45 HDL Cholesterol 45 mg/dL (>55) L 06/08/20 09:45 Coronavirus (PCR) NOT DETECTED (NOT DETECTD) 06/11/20 10:16 - Physical Exam Vitals and I&O: Vital Signs Temp 98.6 F 06/16/20 06:00 Pulse 84 06/16/20 06:00 Resp 18 06/16/20 08:00 BP 106/67 06/16/20 08:11 Pulse Ox 96 06/16/20 06:00 Intake & Output 06/15/20 06/16/20 06/16/20 18:59 06:59 18:59 Intake Total 900 Balance 900 Intake: Oral 900 Other: # Voids 3 # Bowel Movements 0 Active Medications: Current Medications Acetaminophen (Tylenol) 650 mg PO Q4H PRN PRN Reason: Pain (Mild 1-3) Stop: 08/03/20 22:10 Last Admin: 06/14/20 11:22 Dose: 650 mg Acetaminophen (Tylenol Extra Strength) 1,000 mg PO Q6H PRN PRN Reason: Pain (Moderate 4-6) Stop: 08/03/20 22:10 Last Admin: 06/15/20 01:08 Dose: 1,000 mg Al Hydrox/Mg Hydrox/Simethicone (Maalox) 30 ml PO Q4HR PRN PRN Reason: GI DISTRESS Stop: 08/03/20 22:10 Last Admin: 06/12/20 14:57 Dose: 30 ml Atorvastatin Calcium (Lipitor) 40 mg PO HS [facility] Stop: 08/10/20 20:59 Last Admin: 06/15/20 21:32 Dose: 40 mg Furosemide (Lasix) 20 mg PO DAILY [facility] Stop: 08/06/20 14:14 Last Admin: 06/16/20 08:11 Dose: 20 mg Lorazepam (Ativan) 1 mg PO Q4HR PRN; Protocol PRN Reason: Anxiety Stop: 08/04/20 07:20 Last Admin: 06/16/20 12:43 Dose: 1 mg Magnesium Hydroxide (Milk Of Magnesia) 30 ml PO HS PRN PRN Reason: Constipation Metformin HCl (Glucophage) 500 mg PO BIDWM [facility] Stop: 08/05/20 09:59 Last Admin: 06/16/20 08:11 Dose: 500 mg Nicotine (Nicotine Transdermal System) 14 mg TD DAILY [facility] Stop: 08/04/20 08:59 Last Admin: 06/16/20 08:10 Dose: 14 mg Nystatin (Nystop) 100 units TP BID [facility] Stop: 08/15/20 08:59 Last Admin: 06/16/20 13:55 Dose: Not Given Quetiapine Fumarate (Seroquel) 100 mg PO BID [facility]; Protocol Stop: 08/11/20 08:59 Last Admin: 06/16/20 08:11 Dose: 100 mg Quetiapine Fumarate (Seroquel) 400 mg PO HS [facility] Stop: 08/15/20 20:59 Trazodone HCl (Desyrel) 100 mg PO HS ANNA; Protocol Stop: 08/11/20 20:59 Last Admin: 06/15/20 21:32 Dose: 100 mg Zolpidem Tartrate (Ambien) 5 mg PO HS PRN PRN Reason: Insomnia Stop: 08/03/20 22:10 Last Admin: 06/15/20 23:23 Dose: 5 mg General: weak HEENT: NC/AT, PERRLA Neck: Supple Lungs: CTAB Cardiovascular: RRR, Normal S1, Normal S2 Abdomen: soft Extremities: clear Neurological: no change Internal Medicine Assmt/Plan - Assessment Assessment: 1. DM 2. HTN 3. Obesity - Plan Plan: reviewed blood sugar diaries continue glucophage continue htn meds d/w r.n. reviewed complete medical records Nutritional Asmnt/Malnutr-PDOC - Dietary Evaluation Malnutrition Findings (Please click <Entered> for more info): Nutritional Asmnt/Malnutrition Start: 06/08/20 11: 05 Text: Status: Complete Freq: Protocol: Document 06/08/20 11:05 EDWARD (Rec: 06/08/20 11:08 EDWARD [id number] [id number]) Nutritional Asmnt/Malnutrition Patient General Information Nutritional Screening Moderate Risk Diagnosis Grave Disability hold Pertinent Medical Hx/Surgical Hx Hyperlipidemia, Bipolar disorder, Schizophrenia, Osteoarthritis, DM, CHF Subjective Information Pt is a 64-year-old male admitted on 06/04 d/t hold for grave disability. Pt is eating an estimated 100% of meals since admit date (x3 days) Per Meal/Nutrition Activity Record. Dietary is currently providing an estimated 1700 kcals and 95 gm Pro to meet 100% kcal and 100+% Pro needs. Anthropometrics HT: 56 WT: 230 LB (104.55 kg) ABW: 155 LB (70.45 kg) BMI: 37.12 (Obese, class II) GI/ Skin Integrity GI: WNL, Soft, Large BM: 8/15 x1 I/O: 1440/Not Noted Skin: WNL, Intact, BLE Edema Patrick: 19 [facility] [place] Estimated Energy Needs: (Obese , ABW) 7028-3580 kcals (20-25 kcals/ kg) 55-70g Pro (0.8-1.0 g/kg) 4804-0947 ml (20-25 ml/kg) Current Diet Order/ Nutrition Support [facility] [place] Pertinent Medications Maalox (PRN), Lipitor, Lasix, MOM (PRN), Metformin Pertinent Labs POC Glucose (06/04-06/05): 128, 121 Nutritional Hx/Data Height 1.68 m Height (Calculated Centimeters) 167.6 Current Weight (lbs) 104.326 kg Weight (Calculated Kilograms) 104.3 Weight (Calculated Grams) 876192.2 [place] Body Weight 130 LB (59.09 kg) % [place] Body Weight 177 Body Mass Index (BMI) 37.1 Weight Status Obese GI Symptoms Last BM 06/07 x1 Skin Integrity/Comment: Skin: WNL, Intact, BLE Edema Patrick: 19 Lasix in medication regimen Current %PO Good (75-100%) Estimated Nutritional Goals BEE in Kcals: Adj wt of IBW Calories/Kcals/Kg 20-25 Kcals Calculated 8095-8493 Protein: Adj wt of IBW Protein g/k.8-1.0 Protein Calculated 55-70 Fluid: ml 7071-9774 ml (20-25 ml/kg) Nutritional Problem 2. Problem Problem Impaired nutrient utilization Etiology r/t endocrine dysfunction Signs/Symptoms: aeb Hx DM, POC Glucose (06/04-): 128, 121. 1. Problem Problem Obese Etiology r/t chronic energy overconsumption Signs/Symptoms: aeb BMI >30 (37.12, obese class II). Malnutrition Related to Morbid Obesity Malnutrition related to morbid obesity No Intervention/Recommendation Comments 1.Continue [facility] [place] diet as tolerated. 2.Continue antihyperglycemic medication for glucose control per MD order. Expected Outcomes/Goals Expected Outcomes/Goals 1.PO intake to continue to meet >75% of estimated nutritional needs. 2.Monitor PO intake, wt, nutrition related labs, and skin integrity. 3.Gradual weight loss (0.5-1.0 ) LB/ week trending toward IBW preferred. 4.F/U as low risk in 7-10 days , 06/15-06/18.
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
[2020-06-17] MEDS: Nicotine 14 mg/24 hr Tdm TD SCH (08:34)
[2020-06-17] MEDS: NYSTATIN 100000 UNITS/GM POWD TP SCH ×2 (08:40→16:36)
[2020-06-17] MEDS: Acetaminophen 500 MG TAB PO PRN (10:54)
--- NOTE | 2020-06-17 18:18 | Internal Medicine Prog Note ---
Internal Medicine Subjective - Subjective Service Date: 06/17/20 Patient seen and examined:: without staff Patient is:: awake Patient Complaints of:: congestion Per staff patient has:: no adverse event, no episodes of fall Internal Medicine Objective - Results Result Diagrams: 06/08/20 09:45 06/08/20 09:45 Recent Labs: Laboratory Last Values WBC 5.3 K/uL (4.8-10.8) 06/08/20 09:45 RBC 5.16 MIL/uL (4.2-6.2) 06/08/20 09:45 Hgb 13.0 g/dL (12.0-16.0) 06/08/20 09:45 Hct 41.5 % (36-48) 06/08/20 09:45 MCV 81 fL (79.0-98.0) 06/08/20 09:45 MCH 25 pg (27-31) L 06/08/20 09:45 MCHC 31 % (32-36) L 06/08/20 09:45 RDW 15.0 % (9.0-15.0) 06/08/20 09:45 Plt Count 277 K/uL (130-430) 06/08/20 09:45 MPV 8.6 fl (7.4-10.4) 06/08/20 09:45 Neut % (Auto) 60.4 % (40-70) 06/08/20 09:45 Lymph % (Auto) 30.0 % (20.5-51.5) 06/08/20 09:45 [place] % (Auto) 6.7 % (1.7-9.3) 06/08/20 09:45 Eos % (Auto) 1.8 % (0-4) 06/08/20 09:45 Baso % (Auto) 1.1 % (0.0-2.0) 06/08/20 09:45 Neut # (Auto) 3.2 K/uL (1.8-7.7) 06/08/20 09:45 Lymph # (Auto) 1.6 K/uL (1.0-5.5) 06/08/20 09:45 [place] # (Auto) 0.4 K/uL (0.0-1.0) 06/08/20 09:45 Eos # (Auto) 0.1 K/uL (0.0-0.4) 06/08/20 09:45 Baso # (Auto) 0.1 K/uL (0.0-0.2) 06/08/20 09:45 Sodium 137 mmol/L (136-145) 06/08/20 09:45 Potassium 4.1 mmol/L (3.5-5.1) 06/08/20 09:45 Chloride 105 mmol/L (98-107) 06/08/20 09:45 Carbon Dioxide 26 mmol/L (23-29) 06/08/20 09:45 Anion Gap 10 (5-15) 06/08/20 09:45 BUN 17 mg/dL (8-21) 06/08/20 09:45 Creatinine 0.78 mg/dL (0.70-1.30) 06/08/20 09:45 Glucose 100 mg/dL (70-99) H 06/08/20 09:45 POC Glucose 95 MG/DL (70 - 105) 06/15/20 11:35 Hemoglobin A1c 7.0 % (4.8-5.6) H 06/08/20 09:45 Calcium 9.6 mg/dL (8.4-10.2) 06/08/20 09:45 Total Bilirubin 0.5 mg/dL (0.0-1.0) 06/08/20 09:45 AST 59 U/L (10-37) H 06/08/20 09:45 ALT 47 U/L (12-78) 06/08/20 09:45 Alkaline Phosphatase 92 U/L (46-116) 06/08/20 09:45 Total Protein 8.1 g/dL (6.4-8.3) 06/08/20 09:45 Albumin 3.3 g/dL (3.4-5.0) L 06/08/20 09:45 Triglycerides 114 mg/dL (30-150) 06/08/20 09:45 Cholesterol 125 mg/dL (<200) 06/08/20 09:45 LDL Cholesterol 68 mg/dL (0-129) 06/08/20 09:45 HDL Cholesterol 45 mg/dL (>55) L 06/08/20 09:45 Coronavirus (PCR) NOT DETECTED (NOT DETECTD) 06/11/20 10:16 - Physical Exam Vitals and I&O: Vital Signs Temp 98.3 F 06/17/20 16:51 Pulse 74 06/17/20 16:51 Resp 20 06/17/20 16:51 BP 110/72 06/17/20 16:51 Pulse Ox 97 06/17/20 16:51 Intake & Output 06/16/20 06/17/20 06/17/20 18:59 06:59 18:59 Intake Total 1200 480 Balance 1200 480 Intake: Oral 1200 480 Other: # Voids 4 3 # Bowel Movements 1 0 Stool Characteristics Soft Soft Formed Formed [place] Active Medications: Current Medications Acetaminophen (Tylenol) 650 mg PO Q4H PRN PRN Reason: Pain (Mild 1-3) Stop: 08/03/20 22:10 Last Admin: 06/14/20 11:22 Dose: 650 mg Acetaminophen (Tylenol Extra Strength) 1,000 mg PO Q6H PRN PRN Reason: Pain (Moderate 4-6) Stop: 08/03/20 22:10 Last Admin: 06/17/20 10:54 Dose: 1,000 mg Al Hydrox/Mg Hydrox/Simethicone (Maalox) 30 ml PO Q4HR PRN PRN Reason: GI DISTRESS Stop: 08/03/20 22:10 Last Admin: 06/12/20 14:57 Dose: 30 ml Atorvastatin Calcium (Lipitor) 40 mg PO HS [facility] Stop: 08/10/20 20:59 Last Admin: 06/16/20 20:08 Dose: 40 mg Furosemide (Lasix) 20 mg PO DAILY [facility] Stop: 08/06/20 14:14 Last Admin: 06/17/20 08:35 Dose: Not Given Lorazepam (Ativan) 1 mg PO Q4HR PRN; Protocol PRN Reason: Anxiety Stop: 08/04/20 07:20 Last Admin: 06/16/20 20:08 Dose: 1 mg Magnesium Hydroxide (Milk Of Magnesia) 30 ml PO HS PRN PRN Reason: Constipation Metformin HCl (Glucophage) 500 mg PO BIDWM [facility] Stop: 08/05/20 09:59 Last Admin: 06/17/20 08:00 Dose: 500 mg Nicotine (Nicotine Transdermal System) 14 mg TD DAILY [facility] Stop: 08/04/20 08:59 Last Admin: 06/17/20 08:34 Dose: 14 mg Nystatin (Nystop) 100 units TP BID [facility] Stop: 08/15/20 08:59 Last Admin: 06/17/20 16:36 Dose: Not Given Quetiapine Fumarate (Seroquel) 100 mg PO BID [facility]; Protocol Stop: 08/11/20 08:59 Last Admin: 06/17/20 16:35 Dose: 100 mg Quetiapine Fumarate (Seroquel) 400 mg PO HS [facility] Stop: 08/15/20 20:59 Last Admin: 06/16/20 21:22 Dose: 400 mg Trazodone HCl (Desyrel) 100 mg PO HS ANNA; Protocol Stop: 08/11/20 20:59 Last Admin: 06/16/20 20:08 Dose: 100 mg Zolpidem Tartrate (Ambien) 5 mg PO HS PRN PRN Reason: Insomnia Stop: 08/03/20 22:10 Last Admin: 06/17/20 03:08 Dose: 5 mg General: weak HEENT: NC/AT, PERRLA Neck: Supple Lungs: CTAB Cardiovascular: RRR, Normal S1, Normal S2 Abdomen: soft Extremities: clear Neurological: no change Internal Medicine Assmt/Plan - Assessment Assessment: 1. DM 2. HTN 3. Obesity - Plan Plan: reviewed blood sugar diaries continue glucophage continue htn meds d/w r.n. reviewed complete medical records Nutritional Asmnt/Malnutr-PDOC - Dietary Evaluation Malnutrition Findings (Please click <Entered> for more info): Nutritional Asmnt/Malnutrition Start: 06/08/20 11: 05 Text: Status: Complete Freq: Protocol: Document 06/08/20 11:05 EDWARD (Rec: 06/08/20 11:08 EDWARD [email or web address] [id number]) Nutritional Asmnt/Malnutrition Patient General Information Nutritional Screening Moderate Risk Diagnosis Grave Disability hold Pertinent Medical Hx/Surgical Hx Hyperlipidemia, Bipolar disorder, Schizophrenia, Osteoarthritis, DM, CHF Subjective Information Pt is a 64-year-old male admitted on 06/04 d/t hold for grave disability. Pt is eating an estimated 100% of meals since admit date (x3 days) Per Meal/Nutrition Activity Record. Dietary is currently providing an estimated 1700 kcals and 95 gm Pro to meet 100% kcal and 100+% Pro needs. Anthropometrics HT: 56 WT: 230 LB (104.55 kg) ABW: 155 LB (70.45 kg) BMI: 37.12 (Obese, class II) GI/ Skin Integrity GI: WNL, Soft, Large BM: 06/07 x1 I/O: 1440/Not Noted Skin: WNL, Intact, BLE Edema Patrick: 19 Diet [facility] [place] Estimated Energy Needs: (Obese , ABW) 4881-6469 kcals (20-25 kcals/ kg) 55-70g Pro (0.8-1.0 g/kg) 5470-7382 ml (20-25 ml/kg) Current Diet Order/ Nutrition Support [facility] [place] Pertinent Medications Maalox (PRN), Lipitor, Lasix, MOM (PRN), Metformin Pertinent Labs POC Glucose (06/04-06/05): 128, 121 Nutritional Hx/Data Height 1.68 m Height (Calculated Centimeters) 167.6 Current Weight (lbs) 104.326 kg Weight (Calculated Kilograms) 104.3 Weight (Calculated Grams) 211614.2 Central Body Weight 130 LB (59.09 kg) % Central Body Weight 177 Body Mass Index (BMI) 37.1 Weight Status Obese GI Symptoms Last BM 06/07 x1 Skin Integrity/Comment: Skin: WNL, Intact, BLE Edema Patrick: 19 Lasix in medication regimen Current %PO Good (75-100%) Estimated Nutritional Goals BEE in Kcals: Adj wt of IBW Calories/Kcals/Kg 20-25 Kcals Calculated 1375-8669 Protein: Adj wt of IBW Protein g/k.8-1.0 Protein Calculated 55-70 Fluid: ml 1961-9007 ml (20-25 ml/kg) Nutritional Problem 2. Problem Problem Impaired nutrient utilization Etiology r/t endocrine dysfunction Signs/Symptoms: aeb Hx DM, POC Glucose (06/04-): 128, 121. 1. Problem Problem Obese Etiology r/t chronic energy overconsumption Signs/Symptoms: aeb BMI >30 (37.12, obese class II). Malnutrition Related to Morbid Obesity Malnutrition related to morbid obesity No Intervention/Recommendation Comments 1.Continue [facility] [place] diet as tolerated. 2.Continue antihyperglycemic medication for glucose control per MD order. Expected Outcomes/Goals Expected Outcomes/Goals 1.PO intake to continue to meet >75% of estimated nutritional needs. 2.Monitor PO intake, wt, nutrition related labs, and skin integrity. 3.Gradual weight loss (0.5-1.0 ) LB/ week trending toward IBW preferred. 4.F/U as low risk in 7-10 days , 06/15-06/18.
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
[2020-06-18] MEDS: Nicotine 14 mg/24 hr Tdm TD SCH (09:34)
[2020-06-18] MEDS: NYSTATIN 100000 UNITS/GM POWD TP SCH ×2 (09:37→18:00)
--- NOTE | 2020-06-18 13:48 | Internal Medicine Prog Note ---
Internal Medicine Subjective - Subjective Service Date: 06/18/20 Patient seen and examined:: without staff Patient is:: awake Patient Complaints of:: congestion Per staff patient has:: no adverse event, no episodes of fall Internal Medicine Objective - Results Result Diagrams: 06/08/20 09:45 06/08/20 09:45 Recent Labs: Laboratory Last Values WBC 5.3 K/uL (4.8-10.8) 06/08/20 09:45 RBC 5.16 MIL/uL (4.2-6.2) 06/08/20 09:45 Hgb 13.0 g/dL (12.0-16.0) 06/08/20 09:45 Hct 41.5 % (36-48) 06/08/20 09:45 MCV 81 fL (79.0-98.0) 06/08/20 09:45 MCH 25 pg (27-31) L 06/08/20 09:45 MCHC 31 % (32-36) L 06/08/20 09:45 RDW 15.0 % (9.0-15.0) 06/08/20 09:45 Plt Count 277 K/uL (130-430) 06/08/20 09:45 MPV 8.6 fl (7.4-10.4) 06/08/20 09:45 Neut % (Auto) 60.4 % (40-70) 06/08/20 09:45 Lymph % (Auto) 30.0 % (20.5-51.5) 06/08/20 09:45 [place] % (Auto) 6.7 % (1.7-9.3) 06/08/20 09:45 Eos % (Auto) 1.8 % (0-4) 06/08/20 09:45 Baso % (Auto) 1.1 % (0.0-2.0) 06/08/20 09:45 Neut # (Auto) 3.2 K/uL (1.8-7.7) 06/08/20 09:45 Lymph # (Auto) 1.6 K/uL (1.0-5.5) 06/08/20 09:45 [place] # (Auto) 0.4 K/uL (0.0-1.0) 06/08/20 09:45 Eos # (Auto) 0.1 K/uL (0.0-0.4) 06/08/20 09:45 Baso # (Auto) 0.1 K/uL (0.0-0.2) 06/08/20 09:45 Sodium 137 mmol/L (136-145) 06/08/20 09:45 Potassium 4.1 mmol/L (3.5-5.1) 06/08/20 09:45 Chloride 105 mmol/L (98-107) 06/08/20 09:45 Carbon Dioxide 26 mmol/L (23-29) 06/08/20 09:45 Anion Gap 10 (5-15) 06/08/20 09:45 BUN 17 mg/dL (8-21) 06/08/20 09:45 Creatinine 0.78 mg/dL (0.70-1.30) 06/08/20 09:45 Glucose 100 mg/dL (70-99) H 06/08/20 09:45 POC Glucose 95 MG/DL (70 - 105) 06/15/20 11:35 Hemoglobin A1c 7.0 % (4.8-5.6) H 06/08/20 09:45 Calcium 9.6 mg/dL (8.4-10.2) 06/08/20 09:45 Total Bilirubin 0.5 mg/dL (0.0-1.0) 06/08/20 09:45 AST 59 U/L (10-37) H 06/08/20 09:45 ALT 47 U/L (12-78) 06/08/20 09:45 Alkaline Phosphatase 92 U/L (46-116) 06/08/20 09:45 Total Protein 8.1 g/dL (6.4-8.3) 06/08/20 09:45 Albumin 3.3 g/dL (3.4-5.0) L 06/08/20 09:45 Triglycerides 114 mg/dL (30-150) 06/08/20 09:45 Cholesterol 125 mg/dL (<200) 06/08/20 09:45 LDL Cholesterol 68 mg/dL (0-129) 06/08/20 09:45 HDL Cholesterol 45 mg/dL (>55) L 06/08/20 09:45 Coronavirus (PCR) NOT DETECTED (NOT DETECTD) 06/11/20 10:16 - Physical Exam Vitals and I&O: Vital Signs Temp 98.1 F 06/18/20 05:18 Pulse 85 06/18/20 05:18 Resp 17 06/18/20 08:00 BP 119/65 06/18/20 09:38 Pulse Ox 94 06/18/20 05:18 Intake & Output 06/17/20 06/18/20 06/18/20 18:59 06:59 18:59 Intake Total 480 Balance 480 Intake: Oral 480 Other: # Voids 3 # Bowel Movements 0 Stool Characteristics Soft Soft Formed Formed Brown Brown Active Medications: Current Medications Acetaminophen (Tylenol) 650 mg PO Q4H PRN PRN Reason: Pain (Mild 1-3) Stop: 08/03/20 22:10 Last Admin: 06/14/20 11:22 Dose: 650 mg Acetaminophen (Tylenol Extra Strength) 1,000 mg PO Q6H PRN PRN Reason: Pain (Moderate 4-6) Stop: 08/03/20 22:10 Last Admin: 06/17/20 10:54 Dose: 1,000 mg Al Hydrox/Mg Hydrox/Simethicone (Maalox) 30 ml PO Q4HR PRN PRN Reason: GI DISTRESS Stop: 08/03/20 22:10 Last Admin: 06/12/20 14:57 Dose: 30 ml Atorvastatin Calcium (Lipitor) 40 mg PO HS ANNA Stop: 08/10/20 20:59 Last Admin: 06/17/20 20:31 Dose: 40 mg Furosemide (Lasix) 20 mg PO DAILY ANNA Stop: 08/06/20 14:14 Last Admin: 06/18/20 09:38 Dose: 20 mg Lorazepam (Ativan) 1 mg PO Q4HR PRN; Protocol PRN Reason: Anxiety Stop: 08/04/20 07:20 Last Admin: 06/18/20 05:05 Dose: 1 mg Magnesium Hydroxide (Milk Of Magnesia) 30 ml PO HS PRN PRN Reason: Constipation Metformin HCl (Glucophage) 500 mg PO BIDWM ANNA Stop: 08/05/20 09:59 Last Admin: 06/18/20 09:00 Dose: 500 mg Nicotine (Nicotine Transdermal System) 14 mg TD DAILY ANNA Stop: 08/04/20 08:59 Last Admin: 06/18/20 09:34 Dose: 14 mg Nystatin (Nystop) 100 units TP BID ANNA Stop: 08/15/20 08:59 Last Admin: 06/18/20 09:37 Dose: Not Given Quetiapine Fumarate (Seroquel) 100 mg PO BID ANNA; Protocol Stop: 08/11/20 08:59 Last Admin: 06/18/20 09:37 Dose: 100 mg Quetiapine Fumarate (Seroquel) 400 mg PO HS ANNA Stop: 08/15/20 20:59 Last Admin: 06/17/20 20:32 Dose: 400 mg Trazodone HCl (Desyrel) 100 mg PO HS ANNA; Protocol Stop: 08/11/20 20:59 Last Admin: 06/17/20 20:32 Dose: 100 mg Zolpidem Tartrate (Ambien) 5 mg PO HS PRN PRN Reason: Insomnia Stop: 08/03/20 22:10 Last Admin: 06/17/20 22:16 Dose: 5 mg General: weak HEENT: NC/AT, PERRLA Neck: Supple Lungs: CTAB Cardiovascular: RRR, Normal S1, Normal S2 Abdomen: soft Extremities: clear Neurological: no change Internal Medicine Assmt/Plan - Assessment Assessment: 1. DM 2. HTN 3. Obesity - Plan Plan: reviewed blood sugar diaries continue glucophage continue htn meds d/w r.n. reviewed complete medical records Nutritional Asmnt/Malnutr-PDOC - Dietary Evaluation Malnutrition Findings (Please click <Entered> for more info): Nutritional Asmnt/Malnutrition Start: 06/08/20 11: 05 Text: Status: Complete Freq: Protocol: Document 06/08/20 11:05 EDWARD (Rec: 06/08/20 11:08 EDWARD [id number]) Nutritional Asmnt/Malnutrition Patient General Information Nutritional Screening Moderate Risk Diagnosis Grave Disability hold Pertinent Medical Hx/Surgical Hx Hyperlipidemia, Bipolar disorder, Schizophrenia, Osteoarthritis, DM, CHF Subjective Information Pt is a 64-year-old male admitted on 06/04 d/t hold for grave disability. Pt is eating an estimated 100% of meals since admit date (x3 days) Per Meal/Nutrition Activity Record. Dietary is currently providing an estimated 1700 kcals and 95 gm Pro to meet 100% kcal and 100+% Pro needs. Anthropometrics HT: 56 WT: 230 LB (104.55 kg) ABW: 155 LB (70.45 kg) BMI: 37.12 (Obese, class II) GI/ Skin Integrity GI: WNL, Soft, Large BM: 06/07 x1 I/O: 1440/Not Noted Skin: WNL, Intact, BLE Edema Patrick: 19 [facility] Estimated Energy Needs: (Obese , ABW) 1376-4549 kcals (20-25 kcals/ kg) 55-70g Pro (0.8-1.0 g/kg) 3014-5092 ml (20-25 ml/kg) Current Diet Order/ Nutrition Support [facility] Pertinent Medications Maalox (PRN), Lipitor, Lasix, MOM (PRN), Metformin Pertinent Labs POC Glucose (06/04-06/05): 128, 121 Nutritional Hx/Data Height 1.68 m Height (Calculated Centimeters) 167.6 Current Weight (lbs) 104.326 kg Weight (Calculated Kilograms) 104.3 Weight (Calculated Grams) 174030.2 [place] Body Weight 130 LB (59.09 kg) % [place] Body Weight 177 Body Mass Index (BMI) 37.1 Weight Status Obese GI Symptoms Last BM 06/07 x1 Skin Integrity/Comment: Skin: WNL, Intact, BLE Edema Patrick: 19 Lasix in medication regimen Current %PO Good (75-100%) Estimated Nutritional Goals BEE in Kcals: Adj wt of IBW Calories/Kcals/Kg 20-25 Kcals Calculated 9545-3106 Protein: Adj wt of IBW Protein g/k.8-1.0 Protein Calculated 55-70 Fluid: ml 4089-7107 ml (20-25 ml/kg) Nutritional Problem 2. Problem Problem Impaired nutrient utilization Etiology r/t endocrine dysfunction Signs/Symptoms: aeb Hx DM, POC Glucose (06/04-): 128, 121. 1. Problem Problem Obese Etiology r/t chronic energy overconsumption Signs/Symptoms: aeb BMI >30 (37.12, obese class II). Malnutrition Related to Morbid Obesity Malnutrition related to morbid obesity No Intervention/Recommendation Comments 1.Continue [facility] diet as tolerated. 2.Continue antihyperglycemic medication for glucose control per MD order. Expected Outcomes/Goals Expected Outcomes/Goals 1.PO intake to continue to meet >75% of estimated nutritional needs. 2.Monitor PO intake, wt, nutrition related labs, and skin integrity. 3.Gradual weight loss (0.5-1.0 ) LB/ week trending toward IBW preferred. 4.F/U as low risk in 7-10 days , 06/15-06/18.
--- NOTE | 2020-06-18 20:43 | Progress Notes ---
DATE: 06/18/2020 SUBJECTIVE: Chart reviewed and the patient interviewed. Also discussed the patient's condition with the staff and reviewed records and labs. The patient still wanders around the unit and she is still very impulsive and unpredictable. The patient also is still easily agitated and severely anxious. 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 Otherwise, the patient continued to comply with taking Seroquel and trazodone with no side effects. The patient is in irritable and angry mood and the patient also is still paranoid and thought processes are circumstantial with flight of ideas. TREATMENT PLAN: Continue current treatment and current medications. Also, continue to work on her irritability and also discharge plans. JOB# [id number]
[2020-06-19] MEDS: NYSTATIN 100000 UNITS/GM POWD TP SCH (08:42)
[2020-06-19] MEDS: Nicotine 14 mg/24 hr Tdm TD SCH (08:43)
--- NOTE | 2020-06-20 15:06 | Discharge Summary ---
DATE OF DISCHARGE: 06/19/2020 AGE: 64. SEX: Female. PHYSICIAN: Dr. Griffin. FINAL DIAGNOSIS AND PRIMARY DIAGNOSIS: Bipolar disorder, manic episode, severe. MEDICAL DIAGNOSES: 1. Obesity. 2. Congestive heart failure. 3. Hypertension. REASON FOR HOSPITALIZATION: The patient was admitted to the hospital on a 5150 hold for grave disability. The patient was extremely irritable and anxious and also was having disorganized thoughts and unable to provide any history for her condition. She was not able to provide any safe plan for self-care. She has history of bipolar disorder and seems to be manicky as the admission. HOSPITAL COURSE: The patient continued to be extremely irritable and continued to have grandiose delusions. 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 She continued to have grandiose delusions and difficulty expressing herself or her feelings. The patient was started on Seroquel and the dose adjusted to 100 mg twice a day and 400 mg at bedtime. Also, the patient was not able to sleep at night and the patient was given trazodone and the dose increased to a 100 mg at bedtime. Gradually, the patient's affect was brighter and the patient was calmer. She was less manicky. She also interacted more with peers and with others. The patient was discharged from the hospital with plans for outpatient treatment. Physical exam of the patient came as mentioned under final diagnosis. The patient had no major medical problems while in the hospital. Also, the patient continued to take metformin in a dose of 500 mg twice a day with meals. AFTER DISCHARGE PLANS: The patient discharged from the hospital with plans for outpatient treatment and followup as an outpatient. DISCHARGE ACTIVITY: No restrictions. DISCHARGE DIET: 1800-calorie diabetic diet. EXPECTED OUTCOME AFTER DISCHARGE: Fair if the patient continues to take her psychotropic medications and follow up with discharge plans. [facility]# [id number]
== END 2020-06-19 14:30 | disposition home or self-care (01) | DRG 885 ==
LOC: GERO 20:00
PROVIDERS: ADMIT Psychiatry & Neurology Psychiatry; ATTEND Psychiatry & Neurology Psychiatry
DX: F31.2 Bipolar disorder, current episode manic severe with psychotic features (principal); I11.0 Hypertensive heart disease with heart failure; E66.9 Obesity, unspecified; E11.9 Type 2 diabetes mellitus without complications; I50.9 Heart failure, unspecified; Z20.828 Contact with and (suspected) exposure to other viral communicable diseases; Z88.8 Allergy status to other drugs, medicaments and biological substances; Z87.891 Personal history of nicotine dependence; Z59.0 Homelessness; E78.5 Hyperlipidemia, unspecified; Z71.3 Dietary counseling and surveillance; Z68.37 Body mass index [BMI] 37.0-37.9, adult; M19.90 Unspecified osteoarthritis, unspecified site
CPT/HCPCS: 36415-UA; 80053-TC; 80061-TC; 82948-90; 83036-90; 85025-TC; 90899; G0410; U0003-CS; Z7610